=== PATIENT | male | born 1950 | race Two or more races ===

== ENCOUNTER 2024-09-28 10:09 | Inpatient (IN) | payer MEDICARE, SELFPAY ==
[2024-09-28] VITALS (8 sets, daily range): BP systolic 89–209; BP diastolic 48–114; PULSE 60–86; RESP 14–20; TEMP 36.3–37.3; O2SAT 94–99; BMI 28.1; BMI 27.5; BMI 27.8
--- NOTE | 2024-09-28 10:14 | EKG_ITS ---
[facility] Test Date: 2024-09-28 Pat Name: GLENIS GARNETT Department: Room: - Gender: Male Direct Care Specialist: : 1950 Requested By: ED Temporary Provider Order Number: [id number] Reading MD: ED Temporary Provider Measurements Intervals [place] Rate: 84 P: 60 NV: 176 QRS: 76 QRSD: 90 T: 12 QT: 336 QTc: 398 Interpretive Statements SINUS RHYTHM No previous ECG available for comparison /store/S0/[id number]/ecg/[id number].pdf
--- NOTE | 2024-09-28 10:29 | XR_ITS ---
Examination: PA lateral chest 2 views TECHNIQUE: Upright PA lateral chest 2 views Exam date and time: September 28, 2024 1039 hours Comparison January 05, 2024 INDICATIONS: Chest pain shortness of breath today FINDINGS: Normal heart size Median sternotomy wires Stable nodule versus nipple shadow right lower lung zone No interval pneumonia or pulmonary edema CABG IMPRESSION: No interval pneumonia or pulmonary edema
--- NOTE | 2024-09-28 10:38 | EDNOTE_ITS ---
ED Chest Pain RME/HPI General Chief Complaint: Chest Pain Stated Complaint: CHEST PAIN SINCE 929 TODAY,FALL 3 DAYS AGO Time Seen by Provider: 09/28/24 10:25 Arrival date/time: 09/28/24 10:09 RME / HPI RME / HPI narrative: This section includes all my notes and documentations, including HPI, PE, MDM, Procedure Notes, and PLAN. David Shine MD HPI: 73 year old male with history of PA, s/p CABG 2.5 years ago, hypertension, diabetes presents to the ED for complaint of chest pain beginning at 08:30 this morning, couple of hours ago. Pain described as sharp in sensation that is located most to the center of his chest, rating 8/10 in severity. Aggravated with palpating the area with no other known modifying factors. Reports he was at his usual state of health after waking a 07:00 am this morning. Denies fevers, chills, sweats, cough, shortness of breath, abdominal pain, n/v, or leg swelling. Patient additionally reports he had a GLF (mechanical fall) the day before yesterday and struck his face on the floor. No loss of consciousness. Denies headache or dizziness. No other complaints. ROS: Respiratory: negative except as documented in HPI. Gastrointestinal: negative except as documented in HPI. Genitourinary: negative except as documented in HPI. Musculoskeletal: negative except as documented in HPI. Skin: negative except as documented in HPI. Neurological: negative except as documented in HPI. Physical Exam: General: Alert and oriented. No acute distress when remaining still. Eyes: Conjunctivae and lids clear. EOMI. PERRL. ENT: No nasal congestion. Pharynx normal. Tympanic membrane normal bilaterally. Neck: Supple. No JVD. Heart: RRR. Lungs: No respiratory distress. Good air movement. No rhonchi, wheezing, rales. Chest: Reproducible chest pain with palpation of the sternum area. Abdomen: Soft and nontender. Legs: No clubbing, cyanosis, edema. Skin: Warm and dry. Neuro: Alert and oriented X 3. I reviewed all diagnostic test results. My interpretation of the EKG is sinus rhythm with nonspecific ST-T changes. My interpretation of the chest x-ray is no acute findings. Blood tests remarkable for Na 119. At this point, diagnoses include chest pain, hyponatremia, hypertensive urgency. Treatment here included normal saline, oral metoprolol 50 mg, oral clonidine 0.3 mg, ibuprofen 400 mg, and two Tylenol #3. No significant improvement noted subjectively and objectively. I discussed the case with our hospitalist. About the presentation and exam and diagnostics and treatments here. And need of further care in the hospital. Will accept the patient. David Shine MD Related Data Home Medications ?Medication ?Instructions ?Recorded ?Confirmed acetaminophen 650 mg 650 mg PO Q8H 05/27/21 05/27/21 tablet,extended release amlodipine 10 mg tablet 10 mg PO QDAY 05/27/21 05/29/21 carvedilol 25 mg tablet 25 mg PO BID 05/27/21 05/29/21 glipizide 5 mg tablet 5 mg PO QDAY 05/27/21 05/29/21 losartan 100 mg tablet 100 mg PO QDAY 05/27/21 05/29/21 pravastatin 20 mg tablet 20 mg PO PRN 05/27/21 05/29/21 sitagliptin phosphate 50 1 tab PO BIDWM 05/27/21 05/29/21 mg-metformin 1,000 mg tablet (Janumet) sildenafil 50 mg tablet (Viagra) 50 mg PO QDAY 05/29/21 05/29/21 Previous Rx's ?Medication ?Instructions ?Recorded ibuprofen 800 mg tablet 800 mg PO TID PRN pain #30 tabs 12/17/21 Allergies Allergy/AdvReac Type Severity Reaction Status Date / Time No Known Allergies Allergy Verified 09/28/24 10:14 Review of Systems Review of Systems Systems Reviewed: All systems reviewed, normal except as documented Past Medical History Past Medical History CARDIAC: Positive Cardiac Disorders, Hypercholesterolemia, Edema and Hypertension RESPIRATORY: Positive Bronchitis and Pneumonia GASTROINTESTINAL: Positive Gastrointestinal Disorders and Obesity MUSCULOSKELETAL: Positive Musculoskeletal Disorders, Arthritis, Rheumatoid Arthritis and Fractures ENDOCRINE: Positive Endocrine Disorders and Diabetes Mellitus Type 2 PSYCHO/SOCIAL: Positive Depression and Anxiety OTHER HISTORY: Positive Hospitalization, Falls and Blood Transfusions Family History FAMILY HISTORY: Positive Family Cardiac Disorders Surgical History SURGICAL: Positive Cardiac Catheterization, Angiogram and Abdominal Surgery Social History SMOKING STATUS: Never smoker Course Course Course Narrative: chest xray ordered to help determine etiology of chest pain. Quality Measures none Orders Category Date Time Status COVID-19 Screening Questionnaire NOW Care 09/28/24 12:38 Active Decision to Admit X1 Care 09/28/24 12:38 Completed EKG (ED ONLY) *Do not use* NOW Care 09/28/24 10:14 Completed Saline [Insert IV] NOW Care 09/28/24 12:11 Active EKG (ED Only) Stat Exams 09/28/24 10:14 Draft EKG (ED Only) Stat Exams 09/28/24 10:15 Ordered XR chest 1V portable Stat Exams 09/28/24 10:29 Completed BNP [B-Type Natriuretic Peptide] Stat Lab 09/28/24 10:57 Completed CBC Stat Lab 09/28/24 10:57 Completed CMP [Comprehensive Metabolic Panel] Stat Lab 09/28/24 10:57 Completed Magnesium Stat Lab 09/28/24 10:57 Completed Troponin I Stat Lab 09/28/24 10:57 Completed ACETAMINOPHEN w/COD 300-30 [Tylenol w/Cod #3] Med 09/28/24 10:28 Discontinued 2 tab PO X1 ONE Ibuprofen Tab [Motrin Tab] Med 09/28/24 10:28 Discontinued 400 mg PO X1 ONE Metoprolol Tartrate [Lopressor] Med 09/28/24 10:34 Discontinued 50 mg PO X1 ONE Sodium Chloride 0.9% 1000 ml [Ns] 1,000 ml Med 09/28/24 12:08 Active IV 125 mls/hr cloNIDine HCL [Catapres] Med 09/28/24 10:34 Discontinued 0.3 mg PO X1 ONE Vital Signs Vital signs: Vital Signs Temperature 99.1 F 09/28/24 10:24 Pulse Rate 79 09/28/24 10:24 Respiratory Rate 18 09/28/24 10:24 Blood Pressure 209/114 H 09/28/24 10:24 Pulse Oximetry (%) 99 09/28/24 10:24 Oxygen Delivery Method Room Air 09/28/24 10:24 Pulse ox is 99% on room air which is adequate. Chest Pain MDM Narrative MDM Narrative:: Antonia Dan am scribing for and in the presence of Dr. Shine. Patient data External records reviewed:: [facility] previous records (I reviewed ED visit on 03/10/2022) Clinical information provided by:: patient and spouse Social determinants that could affect healthcare access:: none Patient has the following chronic illnesses:: PA, s/p CABG 2.5 years ago, hypertension, diabetes How is presenting disease/condition affected by chronic disease/condition?: exacerbated by Evaluation data The following diagnostics were reviewed and interpreted by me:: lab results, radiology exam(s) and EKG tracing(s) (My interpretation of the EKG: NSR (84 bpm) with no ST-T changes. David Shine MD) Lab and/or radiology exams considered but not ordered:: None Interpretation Summary: Ordering Physician: David Shine MD Date of Service: 09/28/24 Procedure(s): XR chest 1V portable Accession Number(s): [id number] cc: David Shine MD; Rex Murillo MD~ Examination: PA lateral chest 2 views TECHNIQUE: Upright PA lateral chest 2 views Exam date and time: September 28, 2024 1039 hours Comparison January 05, 2024 INDICATIONS: Chest pain shortness of breath today FINDINGS: Normal heart size Median sternotomy wires Stable nodule versus nipple shadow right lower lung zone No interval pneumonia or pulmonary edema CABG IMPRESSION: No interval pneumonia or pulmonary edema Dictated By: Rex Murillo MD Signed By: <Electronically signed by Rex Murillo MD in OV> 09/28/24 1058 Medications / Prescriptions Medications or Prescriptions considered but not ordered:: None Medication administrations:: Medication Administration History Sodium Chloride (Ns) 1,000 mls @ 125 mls/hr IV .Q8H ONE Stop: 09/28/24 20:07 Last Admin: 09/28/24 13:35 Dose: 125 mls/hr Documented By: ASIF Discontinued Medications Acetaminophen/Codeine Phosphate (Acetaminophen W/Cod 300-30 Tablet) 2 tab PO X1 ONE Stop: 09/28/24 10:29 Last Admin: 09/28/24 11:34 Dose: 2 tab Documented By: ASIF Clonidine (Clonidine Hcl 0.1 Mg Tablet) 0.3 mg PO X1 ONE Stop: 09/28/24 10:35 Last Admin: 09/28/24 11:33 Dose: 0.3 mg Documented By: ASIF Ibuprofen (Ibuprofen Tab 400 Mg Tablet) 400 mg PO X1 ONE Stop: 09/28/24 10:29 Last Admin: 09/28/24 11:34 Dose: 400 mg Documented By: ASIF Metoprolol Tartrate (Metoprolol Tartrate 25 Mg Tablet) 50 mg PO X1 ONE Stop: 09/28/24 10:35 Last Admin: 09/28/24 11:33 Dose: 50 mg Documented By: ASIF See chart Consultations Consultation(s) initiated? (list below): Yes Consultation #1 (Physician, Specialty, Details): I spoke with hospitalist Dr. Arrington regarding admission. Discussed patients PMHx, HPI, ED course, exam findings, labs, and radiology results. The hospitalist agree to accept the patient for admission. Time: 12:40 Diagnosis Chest Pain Differential Diagnosis: pneumothorax, stable angina, unstable angina pectoris, atypical chest pain, st elevation myocardial infarction, costochondritis and chest pain Most likely diagnosis given after review of the tests above:: Acute hyponatremia Chest pain Hypertension Admission Indicated Admission indicated?: indicated Explain why admission is indicated or not indicated:: Chest pain and severe hyponatremia Admission Request Was there a request for admission?: Yes Admission Attestation Admission request attestation: Discussed case with Hospitalist service regarding admission. Discussed patients ED course, exam findings, labs, and radiology results. The Hospitalist [agrees,declines] to accept the patient for admission. Disposition Plan Disposition Plan: Admit Discharge Plan Plan Patient Disposition: Admit Acute Care w/in Hospital Prescriptions/Referrals Prescriptions/Med Rec: No Action ibuprofen 800 mg tablet 800 mg PO TID PRN (Reason: pain) Qty: 30 0RF amlodipine 10 mg Tablet 10 mg PO QDAY pravastatin 20 mg Tablet 20 mg PO PRN losartan 100 mg Tablet 100 mg PO QDAY glipizide 5 mg Tablet 5 mg PO QDAY Janumet 50-1,000 mg Tablet 1 tab PO BIDWM carvedilol 25 mg Tablet 25 mg PO BID acetaminophen [Tylenol Arthritis] 650 mg Tablet Extended Release 650 mg PO Q8H sildenafil [Viagra] 50 mg Tablet 50 mg PO QDAY Referrals: No Primary/Family,Physician [Primary Care Provider] - In 1 week Problem List Clinical Impression: Acute hyponatremia, Chest pain Patient/Caregiver Discharge Instructions Print Language: Kittitian Stand Alone Forms: Jaymie Award Info., Patient Portal Info Letter
[2024-09-28 11:06] LABS: Basophils # (Auto) 0.1 Thou/mm3 (0.0-0.2); Basophils % (Auto) 1 % (0-2.5); Eosinophils # (Auto) 0.1 Thou/mm3 (0.0-0.5); Eosinophils % (Auto) 1 % (0-10); Hematocrit 41.7 % (41.0-53.0); Immature Granulocytes % (Auto) 2 % (0-0); Immature Granulocytes Auto 0.23 Thou/mm3 (0.00-0.00); Lymphocytes # (Auto) 0.8 Thou/mm3 (1.0-4.8); Lymphocytes % (Auto) 7 % (10-50); Mean Corpuscular Volume 92 fL (80-100); Monocytes # (Auto) 1.3 Thou/mm3 (0.0-0.8); Monocytes % (Auto) 11 % (0-12); Neutrophils # (Auto) 9.1 Thou/mm3 (1.8-7.7); Neutrophils % (Auto) 79 % (37-80); Nucleated Red Blood Cell % 0 /100 WBC (0); Platelet Count 239 Thou/mm3 (140-440); RDW Standard Deviation 41.7 fL (35.1-43.9); Red Blood Count 4.54 Miln/mm3 (4.50-5.90); White Blood Count 11.5 Thou/mm3 (3.8-10.6)
[2024-09-28 11:22] LABS: B-Type Natriuretic Peptide 143 pg/mL (0-100)
[2024-09-28 11:28] LABS: Alanine Aminotransferase 16 U/L (10-49); Albumin, Serum 4.8 gm/dL (3.4-4.8); Albumin/Globulin Ratio 1.6 (1.2-2.2); Alkaline Phosphatase 98 U/L (46-116); Anion Gap 5 (7-16); Aspartate Amino Transferase 17 U/L (0-34); BUN/Creatinine Ratio 14 Ratio (12-20); Blood Urea Nitrogen 11 mg/dL (9-23); Carbon Dioxide 27.6 mMol/L (20.0-31.0); Chloride 86 mMol/L (98-107); Creatinine (Component) 0.8 mg/dL (0.6-1.3); Estimated Creatinine Clearance 88.5 mL/min (>60); Glucose 120 mg/dL (74-106); Magnesium 1.7 mg/dL (1.6-2.6); Osmolality,Calculated 240 (275-295); Potassium 5.1 mMol/L (3.4-5.1); Total Protein 7.8 gm/dL (5.7-8.2); Troponin I < 0.020 ng/mL (0.0-0.045); eGFR > 60 See Note
[2024-09-28] MEDS: METOPROLOL TARTRATE 25 MG TABLET 50 MG PO (11:33)
[2024-09-28] MEDS: cloNIDine HCL 0.1 MG TABLET 0.3 MG PO (11:33)
[2024-09-28] MEDS: IBUPROFEN TAB 400 MG TABLET PO (11:34)
[2024-09-28] MEDS: ACETAMINOPHEN w/COD 300-30 TABLET 2 TAB PO (11:34)
[2024-09-28 12:08] LABS: Sodium 119 mMol/L (136-145)
[2024-09-28] MEDS: SODIUM CHLORIDE 0.9% 1000 ML 1,000 ML 125 ML IV (13:35)
--- NOTE | 2024-09-28 15:29 | ESHP_ITS ---
Documentation for date of: 09/28/24 [facility] History of Present Illness History of present illness: This is a 62-year-old male with PMHx of CAD, s/p CABG 2.5 years ago, HTN, HLD, diabetes, and arthritis who presented to ED complaining of chest pain that started at 8:30 AM morning. Rates pain 8/10 in severity, dull but not stabbing in nature, located in the middle of the chest, nonradiating. Patient believes the pain occurred after falling last night for which she tripped over an object at night. Denies preceding symptoms prior to fall, lightheadedness, dizziness, head trauma, headache, generalized weakness, fever, chills, fatigue, LOC, neurological deficits, cardiogenic chest pain, shortness of breath or cough, abnormal bleed, abdominal pain, N/V/D/C, or urinary symptoms. ED COURSE: * Afebrile, BP 209/114 improved after CLONIDINE, HR 79, satting 99% on room air * WBC 11.5, otherwise CBC benign * Sodium 119, potassium 5.1, calculated osmolality 240, BNP 143, troponins negative * CXR without pneumonia or pulmonary edema, EKG sinus rhythm without acute ST changes Patient admitted for symptomatic severe hyponatremia and started on fluids. Nephrology consulted. PMHx: As above PSHx: None Meds: METFORMIN 1000 daily, METOPROLOL titrate 25 mg daily, LOSARTAN 100 mg daily, FARXIGA 5 mg daily, KERENDIA 20 mg daily, ATORVASTATIN 40 mg HS, ASPIRIN 80 mg HS, TAMSULOSIN 0.4 mg HS, OMEPRAZOLE 40 mg daily, SUCRALFATE 1 mg daily in AM. SH: Denies tobacco, alcohol or drug use Exam Vital Signs Temp Pulse Resp BP Pulse Ox O2 Del Method 98.3 F 62 20 89/48 L 96 Room Air 09/28/24 13:31 09/28/24 13:31 09/28/24 13:31 09/28/24 13:31 09/28/24 13:31 09/28/24 13:31 Narrative Exam GENERAL: Normal appearing elderly male, NAD, on room air HEENT: NCAT.?PEMA. Oral mucosa is moist. Patent Nares NECK: Supple, nontender, no thyromegaly, no meningismus, no JVD, no step offs CHEST: Symmetrical, atraumatic, and with equal expansion. Tenderness to palpation over sternum, no obvious bony deformities. CARDIOVASCULAR: RRR, no m/g/r LUNGS: CTAB, no w/r/r. Symmetrical chest rise. No intercostal subcostal retraction. ABDOMEN: Soft, flat, nontender. No guarding/rebound tenderness/masses. +BS EXTREMITIES: Nontender.? No edema/cyanosis.?Moves all 4 extremities well, with full ROM and good CSM. SKIN: Warm and dry, no jaundice/rashes. 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 Several superficial lacerations over left forehead, nontender, no active bleed. MSK: No lumbar or midline, no CVA, no paraspinal muscle spasm or tenderness. NEURO: YOU x4, CN II-XII grossly intact.?No focal neurologic deficits. PSYCHIATRIC: Normal mood and affect, cooperative, no SI or HI or hallucinations. Results: Labs 09/29/24 03:24 09/29/24 08:10 Labs: Short CBC 09/28/24 Range/Units 10:57 WBC 11.5 H (3.8-10.6) Thou/mm3 Hgb 15.0 (13.5-16.0) g/dL Hct 41.7 (41.0-53.0) % Plt Count 239 (140-440) Thou/mm3 BMP 09/28/24 10:57 Sodium 119 L* Potassium 5.1 Chloride 86 L Carbon Dioxide 27.6 BUN 11 Creatinine 0.8 Glucose 120 H Calcium 10.0 Cardiac Enzymes 09/28/24 Range/Units 10:57 Troponin I < 0.020 (0.0-0.045) ng/mL Liver Function 09/28/24 Range/Units 10:57 Total Bilirubin 1.0 (0.3-1.2) mg/dL AST 17 (0-34) U/L ALT 16 (10-49) U/L Alkaline Phosphatase 98 (46-116) U/L Albumin 4.8 (3.4-4.8) gm/dL Quality Measures Quality Measures none Advance care planning discussed with:: patient Medications Home Medications and Allergies Home Medications ?Medication ?Instructions ?Recorded ?Confirmed ?Type acetaminophen 650 mg 650 mg PO Q8H 05/27/21 05/27/21 History tablet,extended release amlodipine 10 mg tablet 10 mg PO QDAY 05/27/21 05/29/21 History carvedilol 25 mg tablet 25 mg PO BID 05/27/21 05/29/21 History glipizide 5 mg tablet 5 mg PO QDAY 05/27/21 05/29/21 History losartan 100 mg tablet 100 mg PO QDAY 05/27/21 09/29/24 History pravastatin 20 mg tablet 20 mg PO PRN 05/27/21 05/29/21 History sitagliptin phosphate 50 1 tab PO BIDWM 05/27/21 05/29/21 History mg-metformin 1,000 mg tablet (Janumet) sildenafil 50 mg tablet (Viagra) 50 mg PO QDAY 05/29/21 05/29/21 History aspirin 81 mg capsule 81 mg PO QDAY 09/29/24 09/29/24 History atorvastatin 40 mg tablet 40 mg PO 1XD 09/29/24 09/29/24 History clopidogrel 75 mg tablet 75 mg PO QPM 09/29/24 09/29/24 History dapagliflozin propanediol 5 mg 5 mg PO QAM 09/29/24 09/29/24 History tablet (Farxiga) dapagliflozin propanediol 5 mg mg 09/29/24 History tablet (Farxiga) finerenone 20 mg tablet (Kerendia) 20 mg PO QAM 09/29/24 09/29/24 History metoprolol tartrate 25 mg tablet 25 mg PO DION 09/29/24 09/29/24 History omeprazole 40 mg capsule,delayed 40 mg PO QAM 09/29/24 09/29/24 History release tamsulosin 0.4 mg capsule 0.4 mg PO QPM 09/29/24 09/29/24 History Allergies Allergy/AdvReac Type Severity Reaction Status Date / Time No Known Allergies Allergy Verified 09/28/24 10:14 Visit Medications Sodium Chloride (Ns) 1,000 mls @ 125 mls/hr IV .Q8H ONE Stop: 09/28/24 20:07 Last Admin: 09/28/24 13:35 Dose: 125 mls/hr Discontinued Medications Acetaminophen/Codeine Phosphate (Acetaminophen W/Cod 300-30 Tablet) 2 tab PO X1 ONE Stop: 09/28/24 10:29 Last Admin: 09/28/24 11:34 Dose: 2 tab Clonidine (Clonidine Hcl 0.1 Mg Tablet) 0.3 mg PO X1 ONE Stop: 09/28/24 10:35 Last Admin: 09/28/24 11:33 Dose: 0.3 mg Ibuprofen (Ibuprofen Tab 400 Mg Tablet) 400 mg PO X1 ONE Stop: 09/28/24 10:29 Last Admin: 09/28/24 11:34 Dose: 400 mg Metoprolol Tartrate (Metoprolol Tartrate 25 Mg Tablet) 50 mg PO X1 ONE Stop: 09/28/24 10:35 Last Admin: 09/28/24 11:33 Dose: 50 mg Assessment & Plan Plan This is a 73 year-old male with PMHx of CAD, s/p CABG 2.5 years ago, HTN, HLD, diabetes, and arthritis admitted for asymptomatic severe hyponatremia. Patient started on fluids, sodium checks, pending nephrology recommendation. Baseline Echocardiogram ordered. Appreciate nephrology's recommendations. # Severe hypoosmotic hyponatremia, asymptomatic DDx: Acute versus chronic: SIADH 2/2 fall, dehydration, hypothyroidism Presented with sodium 119, calculated osmolarity 240 No history of DIURETIC use, GI loss, heart failure, liver failure, alcoholism, or kidney disease Last sodium on file from 2022 ? Started IV fluids at 75 cc/HR, pending baseline echocardiogram ? Sodium checks Q3H ? Sodium correction rate 6-8 mEq in 24 hours ? Pending urine potassium, sodium, nitrogen, chloride, creatinine ? Pending TSH ? Follow-up nephrology recommendations # Mechanical fall # Chest pain 2/2 fall May be a cause of hyponatremia (SIADH) rather than a result of hyponatremia Admits to mechanical fall on Friday night after tripping over a misplaced object on the floor Exam showed left forehead facial laceration, nontender, no active bleed, no skull deformities, otherwise no focal neurological deficits, cranial nerve exam grossly intact. Reproducible chest tenderness over the mid sternum, without deformities, CXR showed no fracture Subjective paresthesia of distal left extremity, normal physical exam ? Monitor for worsening symptoms, consider CT head ? Follow-up B12 level ? ANALGESICS ordered # CAD, s/p CABG 2.5 years ago. # Hypertensive urgency (resolved) # Hx of HTN, HLD Admission BP 209/114 without signs of EOD, improved with CLONIDINE, patient skipped home ANTIHYPERTENSIVE dose today. Denies cardiogenic chest pain, normal troponins, normal EKG Pending lipid panel, TSH Target LDL should be less than 55 Patient should be on high intensity statin, however currently on 40 mg ? Resumed ASPIRIN 81 mg daily ? Resumed PLAVIX 75 mg HS ? Resumed LOSARTAN 100 mg daily ? Resumed ATORVASTATIN 40 mg HS ? Resume METOPROLOL 50 mg daily # T2DM Fingerstick GLUCOSE 119, last A1c 5.8 from 03/2023 ? Follow-up A1c ? INSULIN sliding scale # Arthritis ? TYLENOL as above Health maintenance Diet: Cardiac GI prophylaxis: PROTONIX DVT prophylaxis: HEPARIN subcu, SCDs Antibiotics: Not indicated CODE STATUS: DNR Disposition: Correcting hyponatremia, pending nephrology recommendations Patient case was discussed with attending, Dorian Arrington MD and senior residents Dr. Phillip and Dr. Cornelius. Almita Hoffman, DO PGYI L Mr Wall is a 73 year old with PMHx of CAD, s/p CABG 2.5 years ago, HTN, HLD, diabetes, and arthritis, who is admitted for severe hyponatremia Na 119. Recent history of GLMF, will supplement vitamins. Nephrology is consulted for hypotonic hyponatremia, severe. Will start patient on NS and monitor closely, goal correction 4-6 in 24 hours. Patient examined and case discussed with the team including attending physician. Note reviewed, I agree with the care plan as documented. - Donnie Cornelius MD, PGY 2 Attending Provider Attestation/Addendum I reviewed labs, imaging, EKG, home medications and prior available records. Face to face evaluation was performed by me. I have personally examined the patient and discussed assessment and plan with the IM team. I reviewed the resident note and agree with the plan with exceptions as below. 73-year-old male with history of CAD status post CABG who presented with a chief complaint of chest pain in the setting of ground-level fall. He was found to have severe hyponatremia. Ground-level fall: Likely in setting of generalized weakness which could be from hyponatremia. Management as below. Management of pain as needed. Ordered PT evaluation. Hyponatremia: Severe. Etiology is unclear but could be contributed to decreased oral intake. Medications reviewed. Patient appears to be dehydrated. Started the patient on normal saline. Monitor BMP. Avoid rapid correction. Send urine studies. Chest pain at rest: Appears to be musculoskeletal in the setting of ground-level fall. Troponin is negative. Management as above. Generalized weakness: Likely in the setting of dehydration versus hyponatremia. Management as above. CAD status post CABG: Resumed home aspirin, Plavix and atorvastatin.
[2024-09-28 16:49] LABS: Thyroid Stimulating Hormone 2.14 uIU/mL (0.55-4.78)
--- NOTE | 2024-09-28 16:50 | ECHO_ITS ---
Transthoracic Echo Report Ht (in): 68 Wt (lb): 181 Exam Location: Portable Status: Inpatient Composite Laminator: Lyla Sanchez Indications: Procedure Performed: BP: 105 / 75 HR: 72 Rhythm: Sinus Technical Quality: Technically difficult study MEASUREMENTS (Male / Female) Normal Values 2D ECHO LV Diastolic Diameter PLAX 4.0 cm 4.2 - 5.9 / 3.9 - 5.3 cm LV Systolic Diameter PLAX 2.9 cm IVS Diastolic Thickness 1.1 cm 0.6 - 1.0 / 0.6 - 0.9 cm LVPW Diastolic Thickness 1.1 cm 0.6 - 1.0 / 0.6 - 0.9 cm LV Relative Wall Thickness 0.5 LVOT Diameter 1.8 cm LA Volume Index 38.3 cm?/m? 16 - 28 cm?/m? Ascending Aorta Diameter 3.2 cm M-MODE Aortic Root Diameter MM 2.7 cm LA Systolic Diameter MM 4.4 cm LA Ao Ratio MM 1.6 AV Cusp Separation MM 2.3 cm DOPPLER AV Peak Velocity 121.0 cm/s AV Peak Gradient 5.9 mmHg AV Mean Gradient 3.0 mmHg AV Velocity Time Integral 23.7 cm LVOT Peak Velocity 100.0 cm/s LVOT Peak Gradient 4.0 mmHg LVOT Velocity Time Integral 18.1 cm LVOT Cardiac Index 1656.7 cm?/min?m? AV Area Cont Eq vti 1.9 cm? AV Area Cont Eq pk 2.1 cm? MV Peak Velocity 105.0 cm/s MV Peak Gradient 4.4 mmHg MV Mean Velocity 58.5 cm/s MV Mean Gradient 2.0 mmHg MV Area PHT 3.5 cm? Mitral E Point Velocity 63.1 cm/s Mitral A Point Velocity 86.3 cm/s Mitral E to A Ratio 0.7 LV E' Lateral Velocity 7.8 cm/s Mitral E to LV E' Lateral Ratio 8.1 LV E' Septal Velocity 5.8 cm/s Mitral E to LV E' Septal Ratio 10.9 FINDINGS Left Ventricle Normal left ventricular size, systolic function with no obvious regional wall motion abnormalities. Mild LVH. The ejection fraction is visually estimated at 50-55%. Right Ventricle The right ventricle is normal in size and systolic function. Left Atrium The left atrium is mildly dilated. Right Atrium The right atrium is normal by two-dimensional imaging, color flow and Doppler imaging with no struct ural abnormalities, no thrombus formation present. Atrial Septum The interatrial septum appears normal with no evidence of a shunt. Aorta The aorta is normal by two-dimensional, color flow and Doppler interrogation. Mitral Valve The mitral valve is mildly MAC. There is trace mitral valve regurgitation. Aortic Valve The aortic valve is trileaflet. Mild sclerosis without stenosis. There is no significant aortic valv e regurgitation. Tricuspid Valve The tricuspid valve is normal by two-dimensional, color flow and Doppler interrogation. There is tra ce tricuspid valve regurgitation. Pulmonic Valve The pulmonic valve is normal by two-dimensional, color flow and Doppler interrogation. There is no significant pulmonic valve regurgitation. Vessels The pulmonary artery appears normal. The inferior vena cava pulmonary and hepatic veins appear wanda l. Pericardium The pericardium is normal by two-dimensional imaging. There is no significant pericardial effusion. CONCLUSIONS Indication: Chest pain/HTN Suboptimal images. Normal LV size and function. Mild LVH. Grade I diastolic dysfunction. Estimated EF 50-55% Normal RV size and function. LA mildly dilated. Mild MAC. Trace MR, TR. Mild AV sclerosis without stenosis. Pedrito Ricardo (Electronically Signed) Final Date: 30 September 2024 05:55
[2024-09-28 16:52] LABS: Sodium 119 mMol/L (136-145)
--- NOTE | 2024-09-28 17:20 | PD.RESCONSUL ---
HPI Data of Consult Patient: known to practice within the last 3 years Consult date: 09/28/24 Requesting Physician: Dorian Arrington MD Admitting Provider: Dorian Arrington MD Attending Provider: Dorian Arrington MD Primary Care Provider: Physician No Primary/Family Consult Narrative Reason for consult: Hyponatremia History of present illness: Mr. Wall is a 39-year-old yoruba-speaking patient with past medical history of diabetes, hypertension, hyperlipidemia, coronary artery disease status post CABG 2020 and BPH who presented to [facility] with a chief complaint of chest pain, patient reported that chest pain started earlier this morning, describes chest pain as dull ache /10, reported feeling of heaviness in the chest radiating to left arm. Patient denies any nausea,vomiting or diaphoresis associated with pain, he reported that he had similar complaint in 2020 when he was admitted for chest pain and was eventually found to have triple-vessel disease for which he was transferred to [facility]. Patient reports following up with Dr. Rai outpatient in the past, unable to follow-up with him due to insurance difficulties, reports regular follow-up with [facility]. Patient was seen at nephrology practice about a year ago for the concern of microalbuminuria. Patient otherwise has no current complaints, denies any shortness of breath. Patient denies any recent increase in water intake, denies any alcohol intake, denies any history of hyponatremia. He does complain of dizziness which started recently, does endorse history of multiple falls, most recent fall described as tripping over a toy box and hitting his head, bruise noted on forehead on the left side. Patient's also reports that patient has decreased p.o. intake and recently has lost weight. Current medications patient currently on Janumet, metoprolol tartrate, losartan, Farxiga, Kerendia, atorvastatin, clopidogrel, aspirin, tamsulosin, omeprazole, sucralfate. ED Course: ED Vitals: On presentation BP 209/114, P79, RR 18, temp 99.1, O2 sat 99 on room air ED Labs: ED labs significant for WBC 11.5, neutrophilia, sodium 119, chloride 86, glucose 120, osmolality 240, BNP 143, troponins negative, TSH 2.14. Repeat sodium 119 ED Imaging: EKG in ED shows no ST elevation, chest x-ray significant for no pneumonia/pulmonary edema ED Treatment:Patient was given clonidine 0.3 mg x 1, metoprolol tartrate 50 mg x 1, ibuprofen 400 mg, acetaminophen/codeine phosphate 2 tabs and was started on NS 125 cc/h Nephrology consulted for management of hypoosmolar hypochloremic hyponatremia. cc:: cc: Dorian Arrington MD Review of Systems Review of Systems Narrative Review of Systems: ROS: -CONSTITUTIONAL: Denies weight loss, fever and chills. Positive for dizziness decreased p.o. intake and recent weight loss. -HEENT: Denies changes in vision and hearing. -RESPIRATORY: Denies SOB and cough. -CV: Denies palpitations. Positive for chest pain. -GI: Denies abdominal pain, nausea, vomiting,constipation and diarrhea. -: Denies dysuria and urinary frequency. -MSK: Denies myalgia and joint pain. -SKIN: Denies rash and pruritus. -NEUROLOGICAL: Denies headache and syncope. -PSYCHIATRIC: Denies recent changes in mood. Denies anxiety and depression. Past Medical History Past Medical History NEUROLOGIC: Negative Neurological Disorders, Cerebrovascular Accident, Transient Ischemic Attacks (TIA), Dementia, Alzheimer's Disease, Parkinson's Disease, Brain Tumor, Meningitis, Seizures, Epilepsy, Multiple Sclerosis, Cerebral Palsy, Amyotrophic Lateral Sclerosis (ALS/Jacqueline Gehrig's), Guillain-[place] Syndrome, Spina Bifida, Paralysis, Peripheral Neuropathy, Nichole's Palsy, Subdural Hematoma, Migraine, Head Trauma, Spinal Cord Injury or Traumatic Brain Injury CARDIAC: Positive Cardiac Disorders, Hypercholesterolemia, Edema and Hypertension; Negative Myocardial Infarction, Cardiac Arrhythmia, Atrial Fibrillation, Angina, Heart Murmur, Coronary Artery Disease, Atherosclerotic Heart Disease, Peripheral Vascular Disease, Aneurysm, Congestive Heart Failure, Congenital Heart Disease, Valvular Heart Disease, Rheumatic Fever, Cardiomyopathy, Pericarditis, Cellulitis, Deep Vein Thrombosis, Hypotension or Varicose Veins RESPIRATORY: Positive Bronchitis and Pneumonia; Negative Chronic Obstructive Pulmonary Disease (COPD), Asthma, Emphysema, Pulmonary Fibrosis, Cystic Fibrosis, Tuberculosis, Pulmonary Embolism, Pulmonary Edema or Sleep Apnea GASTROINTESTINAL: Positive Gastrointestinal Disorders and Obesity; Negative Hepatitis, Cirrhosis, Pancreatitis, Celiac Disease, Gall Bladder Disease, Gastrointestinal Bleed, Esophageal Varices, Rizo's Esophagus, Colitis, Ulcerative Colitis, Diverticulitis, Diverticulosis, Ulcer, Colorectal Cancer, Irritable Bowel, Crohn's Disease, Obstructive Bowel, Hiatal Hernia, Hemorrhoids or Gastroesophageal Reflux Disease GENITOURINARY: Negative Genitourinary Disorders, Renal Disease, Kidney Stones, Polycystic Kidney Disease, Neurogenic Bladder, Inguinal Hernia, Dialysis, Prostate Cancer or Benign Prostatic Hyperplasia REPRODUCTIVE: Negative Breast Cancer or Testicular Cancer MUSCULOSKELETAL: Positive Musculoskeletal Disorders, Arthritis, Rheumatoid Arthritis and Fractures; Negative Muscular Dystrophy, Myasthenia Gravis, Marfan's Syndrome, Bone Cancer, Osteoporosis, Degenerative Disk Disease, Gout, Scoliosis, Carpal Tunnel Syndrome, Fibromyalgia, Degenerative Joint Disease, Osteomyelitis or Poliovirus ENT: Negative Cataracts, Glaucoma, Blind, Retinal Detachment, Macular Degeneration, Ear Infection, Deafness, Head Trauma or Eye Prosthesis ENDOCRINE: Positive Endocrine Disorders and Diabetes Mellitus Type 2; Negative Diabetes Mellitus Type 1, Hypoglycemia, Jocelyn's Syndrome, Ervin's Disease, Hyperthyroidism, Hypothyroidism, Parathyroid Disease, Pituitary Disease, Systemic Lupus Erythematosus, Syndrome of Inappropriate Antidiuretic Hormone (SIADH), Adrenal Disease or Graves' Disease HEMATOLOGIC: Negative Blood Disorders, Anemia, Leukemia, Hemophilia, Thalassemia, Sickle Cell Disease or Clotting Problems PSYCHO/SOCIAL: Positive Depression and Anxiety; Negative Psychiatric Problems, Schizophrenia, Recreational Drug Use, Bipolar Disorder, Behavior Problems, Self-Mutilation, Attention Deficit Disorder, Attention Deficit Hyperactivity Disorder, Depression, Post Traumatic Stress Disorder or Eating Disorder OTHER HISTORY: Positive Hospitalization, Falls, Blood Transfusions and Measles; Negative Autoimmune Disease, Down Syndrome, Autism, Developmental Delay, Shingles, Blood Transfusion Reaction, Anesthesia Reactions, Organ Transplant, Chemotherapy, Radiation Therapy, Hyperbaric Therapy, MRSA, VRSA, Vancomycin-Resistant Enterococci, Human Immunodeficiency Virus (HIV), Chicken Pox, Mumps, Rubella ([place] Measles), Pertussis, Clostridium Difficile, Cancer, Breast Cancer, Colorectal Cancer, Lung Cancer, Prostate Cancer or Testicular Cancer Family History FAMILY HISTORY: Positive Family Cardiac Disorders; Negative Family Psychiatric Problems, Family Respiratory Disorders, Family Gastrointestinal Problems, Family Cancer, Family Surgery or Family Anesthesia Reaction Surgical History SURGICAL: Positive Cardiac Catheterization, Angiogram and Abdominal Surgery; Negative Cardiac Surgery, Open Heart Surgery, Coronary Artery Bypass Graft, Valve Replacement, Vascular Surgery, Coronary Stent, Pacemaker, Auto Implanted Cardiovert Defib, Carotid Endarterectomy, Endocrine Surgery, Thyroidectomy, Ear Surgery, Tympanostomy Tube, Eye Surgery, Nose Surgery, Oral Surgery, Tonsillectomy, Adenoidectomy, Cochlear Implant, Corneal Transplant, Throat Surgery, Tracheostomy, Gastric Bypass Surgery, Gastrostomy, Bowel Surgery, Nephrectomy, Transurethral Resection, Joint Replacement, Amputation, Open Reduction Internal Fixation, Arthroscopy, Neurologic Surgery, Brain Shunt, Vasectomy or Organ Transplant Social History SMOKING STATUS: Never smoker Past Medical History Comments PMH COMMENT: PMH: Positive for diabetes, hypertension, hyperlipidemia, coronary artery disease status post CABG 2020 and BPH PSHx: Coronary artery bypass graft, 2020 Allergies: No known allergies Social history: -Smoking: Denies -Alcohol Use: Admits to occasional alcohol use -Illicit Drug Use: Denies -Martial Status: , at bedside Family History: Unable to provide any pertinent family history Exam Vital Signs Temp Pulse Resp BP Pulse Ox O2 Del Method 98.1 F 62 15 130/74 94 L Room Air 09/28/24 16:29 09/28/24 16:29 09/28/24 16:29 09/28/24 16:29 09/28/24 16:29 09/28/24 16:29 Narrative Exam Physical Exam General: Awake and in no acute distress. Conversational and non-toxic appearing. HEENT: Normocephalic, atraumatic, mucous membranes moist. Bruise noted on forehead, left side Heart: Regular rate and rhythm, no murmurs. Lungs: Clear to auscultation with no wheezing or crackles. Abdomen: Soft, obese, nondistended, nontender, positive bowel sounds. ?No guarding or rebound tenderness. Neurologic: Alert and oriented x3, no gross neurological deficit, and patient able to move all 4 extremities. Extremities: No edema. Bilateral venous stasis/dermatitis noted bilateral legs. Skin: No rash or ecchymoses. Results Labs 09/29/24 03:24 09/29/24 16:56 Labs: Short CBC 09/28/24 Range/Units 10:57 WBC 11.5 H (3.8-10.6) Thou/mm3 Hgb 15.0 (13.5-16.0) g/dL Hct 41.7 (41.0-53.0) % Plt Count 239 (140-440) Thou/mm3 BMP 09/28/24 09/28/24 10:57 16:05 Sodium 119 L* 119 L* Potassium 5.1 Chloride 86 L Carbon Dioxide 27.6 BUN 11 Creatinine 0.8 Glucose 120 H Calcium 10.0 Cardiac Enzymes 09/28/24 Range/Units 10:57 Troponin I < 0.020 (0.0-0.045) ng/mL Liver Function 09/28/24 Range/Units 10:57 Total Bilirubin 1.0 (0.3-1.2) mg/dL AST 17 (0-34) U/L ALT 16 (10-49) U/L Alkaline Phosphatase 98 (46-116) U/L Albumin 4.8 (3.4-4.8) gm/dL Quality Measures Quality Measures none Advance care planning discussed with:: patient and spouse Medications Home Medications and Allergies Home Medications ?Medication ?Instructions ?Recorded ?Confirmed ?Type acetaminophen 650 mg 650 mg PO Q8H 05/27/21 05/27/21 History tablet,extended release amlodipine 10 mg tablet 10 mg PO QDAY 05/27/21 05/29/21 History carvedilol 25 mg tablet 25 mg PO BID 05/27/21 05/29/21 History glipizide 5 mg tablet 5 mg PO QDAY 05/27/21 05/29/21 History losartan 100 mg tablet 100 mg PO QDAY 05/27/21 09/29/24 History pravastatin 20 mg tablet 20 mg PO PRN 05/27/21 05/29/21 History sitagliptin phosphate 50 1 tab PO BIDWM 05/27/21 05/29/21 History mg-metformin 1,000 mg tablet (Janumet) sildenafil 50 mg tablet (Viagra) 50 mg PO QDAY 05/29/21 05/29/21 History aspirin 81 mg capsule 81 mg PO QDAY 09/29/24 09/29/24 History atorvastatin 40 mg tablet 40 mg PO 1XD 09/29/24 09/29/24 History clopidogrel 75 mg tablet 75 mg PO QPM 09/29/24 09/29/24 History dapagliflozin propanediol 5 mg 5 mg PO QAM 09/29/24 09/29/24 History tablet (Farxiga) dapagliflozin propanediol 5 mg mg 09/29/24 History tablet (Farxiga) finerenone 20 mg tablet (Kerendia) 20 mg PO QAM 09/29/24 09/29/24 History metoprolol tartrate 25 mg tablet 25 mg PO DION 09/29/24 09/29/24 History omeprazole 40 mg capsule,delayed 40 mg PO QAM 09/29/24 09/29/24 History release tamsulosin 0.4 mg capsule 0.4 mg PO QPM 09/29/24 09/29/24 History Allergies Allergy/AdvReac Type Severity Reaction Status Date / Time No Known Allergies Allergy Verified 09/28/24 10:14 Visit Medications Acetaminophen (Acetaminophen 325 Mg Tablet) 650 mg PO Q6H PRN PRN Reason: Fever >100.4 Stop: 10/28/24 15:34 Acetaminophen (Acetaminophen 325 Mg Tablet) 650 mg PO Q6H PRN PRN Reason: PAIN SCALE 1-3 (mild Stop: 10/28/24 15:34 Aspirin (Aspirin Ec 81 Mg Tabec) 81 mg PO QDAY [facility] Stop: 10/28/24 15:59 Atorvastatin Calcium (Atorvastatin Calcium 20 Mg Tablet) 40 mg PO HS [facility] Stop: 10/28/24 20:59 Clopidogrel Bisulfate (Clopidogrel Bisulfate 75 Mg Tablet) 75 mg PO HS [facility] Stop: 10/28/24 20:59 Dextrose (Dextrose 50%-Water Inj 50 Ml Syringe) 25 ml IV Q15MIN PRN PRN Reason: BG 50-70 responsive npo pt Stop: 10/28/24 15:46 Dextrose (Dextrose 50%-Water Inj 50 Ml Syringe) 50 ml IV Q15MIN PRN PRN Reason: BG <50 OR BG <70 & pt unresponsive Stop: 10/28/24 15:46 Glucagon (Glucagon Inj 1 Mg Vial) 1 mg IM Q15MIN PRN PRN Reason: BG <70, and no IV access Sodium Chloride (Ns) 1,000 mls @ 75 mls/hr IV .[id number] ONE Stop: 09/29/24 01:27 Insulin Human Lispro (Insulin Lispro (Admelog) 1 Unit/0.01 Ml Unit) 0 unit [facility]; Protocol Stop: 10/28/24 16:59 Losartan Potassium (Losartan Potassium 25 Mg Tablet) 100 mg PO QDAY [facility] Stop: 10/29/24 08:59 Ondansetron HCl (Ondansetron Inj 2 Mg/Ml Inj 2 Ml) 4 mg IV Q6H PRN; Protocol PRN Reason: NAUSEA OR VOMITING Stop: 10/28/24 15:34 Oxycodone/Acetaminophen (Oxycodone/Apap 5/325 Tablet) 1 tab PO Q6H PRN PRN Reason: PAIN SCALE 4-6 (Moderate Stop: 10/03/24 15:34 Pantoprazole Sodium (Pantoprazole 20 Mg Tablet) 20 mg PO QDAY [facility] Stop: 10/28/24 15:59 Sucralfate (Sucralfate 1 Gm Tablet) 1 gm PO ACBR [facility] Stop: 10/29/24 05:59 Tamsulosin HCl (Tamsulosin Hcl 0.4 Mg Capsule) 0.4 mg PO QDAY [facility] Stop: 10/29/24 08:59 Discontinued Medications Acetaminophen/Codeine Phosphate (Acetaminophen W/Cod 300-30 Tablet) 2 tab PO X1 ONE Stop: 09/28/24 10:29 Last Admin: 09/28/24 11:34 Dose: 2 tab Clonidine (Clonidine Hcl 0.1 Mg Tablet) 0.3 mg PO X1 ONE Stop: 09/28/24 10:35 Last Admin: 09/28/24 11:33 Dose: 0.3 mg Sodium Chloride (Ns) 1,000 mls @ 125 mls/hr IV .Q8H ONE Stop: 09/28/24 20:07 Last Admin: 09/28/24 13:35 Dose: 125 mls/hr Ibuprofen (Ibuprofen Tab 400 Mg Tablet) 400 mg PO X1 ONE Stop: 09/28/24 10:29 Last Admin: 09/28/24 11:34 Dose: 400 mg Metoprolol Tartrate (Metoprolol Tartrate 25 Mg Tablet) 50 mg PO X1 ONE Stop: 09/28/24 10:35 Last Admin: 09/28/24 11:33 Dose: 50 mg Assessment & Plan Plan Summary: is a 39-year-old yoruba-speaking patient with past medical history of diabetes, hypertension, hyperlipidemia, coronary artery disease status post CABG 2020 and BPH who presented to [facility] with a chief complaint of chest pain. Nephrology consulted for management of hypoosmolar hypochloremic hyponatremia. # Hypoosmolar hypochloremic hyponatremia -Denies any history of hyponatremia, not on any diuretics, unable to provide reliable detail of current p.o. medication, denies any neurological symptoms, no neurological deficits seen on exam - at bedside does report decreased p.o. intake, reports recent weight loss. Does endorse increased dizziness causing multiple falls recently. -Patient does not look fluid overloaded at bedside, does report decreased p.o. intake, considering hypovolemic hyponatremia due to decreased p.o. intake. -Patient's sodium 119 on presentation, repeat sodium 119. Patient was started on IV NS in ED 125 cc/h. Plan: -Continue IV normal saline 75 cc/h -Continue sodium checks every 4 hours -Follow urine electrolytes -Follow urine analysis -Pending med reconciliation, will confirm home meds in a.m. -Correct sodium with goal of 4 to 6 mEq in 24 hours -Avoid nephrotoxic medication -Renally dose medication -Fall precautions # Cardiac chest pain # Coronary artery disease status post CABG 2020 Patient did present with chest pain, reported dull ache radiating to left arm, troponin negative in ED, EKG negative for any ST elevation Does endorse chest pain currently Management per primary team # Diabetes mellitus # Hypertension # Hyperlipidemia # BPH Management as per primary team Case discussed with Attending physician Dr. Rosales. Paula Ugarte PGY1 Attending Provider Attestation/Addendum Patient seen and examined with resident physician Dr. Ugarte. Note reviewed, agree with findings and recommendations. Patient currently seen in the emergency department. at bedside and she is a calender wind up tender. Patient well-known to me from my CKD clinic for proteinuria in the setting of her diabetes. He is currently taking losartan, Kerendia, Farxiga for renal protection. Admitted with chest pain-rule out unstable angina. Incidentally noted to have a sodium of 119. Per patient has decreased p.o. intake in the last few days associated weight loss. Suspect hypovolemic hyponatremia. Agree with continuing normal saline with close monitoring of serum sodium. No more than 6 mEq rise in the next 24 hours. Patient clinically seems to be stable with no neurological problems. No need for 3% hypertonic saline. Will follow closely. Thank you Dr. Arrington for allowing me to participate in the care of Mr. Wall.
[2024-09-28 17:25] LABS: Collection Type, Urine Clean Catch; Squamous Epithelial Cell,Urine 0 /hpf (0-5)
[2024-09-28 18:01] LABS: Sodium,Urine Random 18.2 mMol/L (20.0-110.0)
[2024-09-28] MEDS: ASPIRIN EC 81 MG TABEC PO (18:01)
[2024-09-28] MEDS: SODIUM CHLORIDE 0.9% 1000 ML 1,000 ML 75 ML IV (18:02)
[2024-09-28 18:11] LABS: Bilirubin,Urine Negative (Negative); Blood,Urine Negative (Negative); Clarity,Urine Clear (Clear/Hazy); Color,Urine Lt-Yellow (Lt Yel-Yel); Glucose, Urine 4+ (Negative); Ketones,Urine Negative (Negative); Leukocyte Esterase,Urine Negative (Negative); Nitrite,Urine Negative (Negative); Protein,Urine 1+ (Neg - Trace); RBC,Urine 4 /hpf (0-3); Specific Gravity,Urine 1.014 (1.001-1.035); Urobilinogen,Urine Negative mg/dL (0.0-1.0); WBC,Urine 2 /hpf (0-5)
[2024-09-28 19:01] LABS: Sodium 123 mMol/L (136-145)
--- NOTE | 2024-09-28 19:20 | PC.CC ---
Pt Sudheer Wall is a 73 yr old male admitted to hospitalist services for severe hypoosmotic hyponatremia, mechanical fall, chest pain 2/2 to fall. [employer] met with pt and his Aleyda Wall [phone] at bedside to complete initial assessment. At time of encounter pt is noted to be alert and oriented to person, place and situation. Pt expressed understanding admission order. Pt able to confirm demographic information. Pt is from home [address] [place] [address], where he lives with his . Pt identifies his as surrogate DM. In the home pt reports being independent with ambulation and with completion of his ADLs. Pt reports he is diabetic on insulin for management. Pt is not on dialysis. Pt does not require supplemental O2 in the home. Pt is followed by Aleyda Mac at [facility]. At time of D/c pt will return home with his providing transport. Pt reports feeling safe in the home. Pt has access to all working utilities and food items.
--- NOTE | 2024-09-28 19:30 | PC.NURSE ---
Report given to spinal surgeon
[2024-09-28] MEDS: PANTOPRAZOLE 20 MG TABLET PO (19:36)
[2024-09-28 20:17] LABS: Chloride,Urine Random 35.1 mMol/L (55.0-125.0); Creatinine,Random Urine 44 mg/dL (30-125); Potassium,Urine Random 60 mMol/L (12-62)
[2024-09-28] MEDS: ATORVASTATIN CALCIUM 20 MG TABLET 40 MG PO (21:49)
[2024-09-28] MEDS: CLOPIDOGREL BISULFATE 75 MG TABLET PO (21:49)
[2024-09-28] MEDS: HEPARIN SOD INJ 5000 UNIT/ML VIAL SC (21:50)
[2024-09-28 22:24] LABS: Sodium 125 mMol/L (136-145)
[2024-09-29] VITALS (11 sets, daily range): BP systolic 98–155; BP diastolic 61–75; PULSE 58–76; RESP 18; TEMP 36.2–36.8; O2SAT 95–98
[2024-09-29 01:12] LABS: Sodium 127 mMol/L (136-145)
[2024-09-29 03:31] LABS: Basophils # (Auto) 0.1 Thou/mm3 (0.0-0.2); Basophils % (Auto) 1 % (0-2.5); Eosinophils # (Auto) 0.2 Thou/mm3 (0.0-0.5); Eosinophils % (Auto) 2 % (0-10); Hematocrit 37.2 % (41.0-53.0); Hemoglobin 13.3 g/dL (13.5-16.0); Immature Granulocytes % (Auto) 2 % (0-0); Immature Granulocytes Auto 0.14 Thou/mm3 (0.00-0.00); Lymphocytes # (Auto) 0.8 Thou/mm3 (1.0-4.8); Lymphocytes % (Auto) 12 % (10-50); Mean Corpuscular HGB Conc 35.8 g/dl (31.0-37.0); Mean Corpuscular Hemoglobin 32.8 pg (25.0-35.0); Mean Corpuscular Volume 92 fL (80-100); Monocytes % (Auto) 15 % (0-12); Neutrophils # (Auto) 4.5 Thou/mm3 (1.8-7.7); Neutrophils % (Auto) 68 % (37-80); Nucleated Red Blood Cell % 0 /100 WBC (0); Platelet Count 217 Thou/mm3 (140-440); RDW Standard Deviation 42.5 fL (35.1-43.9); Red Blood Count 4.05 Miln/mm3 (4.50-5.90); White Blood Count 6.7 Thou/mm3 (3.8-10.6)
[2024-09-29 03:47] LABS: Glucose Estimated Average 108 mg/dL (80-131); Hemoglobin A1C 5.4 % Hgb (4.8-6.0)
[2024-09-29 03:55] LABS: Alanine Aminotransferase 12 U/L (10-49); Albumin, Serum 3.8 gm/dL (3.4-4.8); Albumin/Globulin Ratio 1.5 (1.2-2.2); Alkaline Phosphatase 82 U/L (46-116); Anion Gap 7 (7-16); Aspartate Amino Transferase 17 U/L (0-34); BUN/Creatinine Ratio 17 Ratio (12-20); Bilirubin,Total 0.8 mg/dL (0.3-1.2); Blood Urea Nitrogen 12 mg/dL (9-23); Calcium 9.5 mg/dL (8.3-10.6); Calcium (Corrected) 9.7 mg/dL (8.5-10.1); Carbon Dioxide 24.3 mMol/L (20.0-31.0); Chloride 98 mMol/L (98-107); Creatinine (Component) 0.7 mg/dL (0.6-1.3); Estimated Creatinine Clearance 101.6 mL/min (>60); Globulin 2.6 gm/dL (2.3-3.5); Glucose 115 mg/dL (74-106); Magnesium 1.9 mg/dL (1.6-2.6); Osmolality,Calculated 259 (275-295); Phosphorous 4.1 mg/dL (2.4-5.1); Potassium 4.2 mMol/L (3.4-5.1); Sodium 129 mMol/L (136-145); Total Protein 6.4 gm/dL (5.7-8.2); eGFR > 60 See Note
[2024-09-29 03:57] LABS: Vitamin B12 267 pg/mL (211-911)
[2024-09-29 04:10] LABS: Cardiac Risk Estimate 2.1 RATIO (4.0-6.7); Cholesterol 112 mg/dL (132-200); HDL Cholesterol 54 mg/dL (40-60); LDL Cholesterol,Calculated 43 mg/dL (0-130); Thyroid Stimulating Hormone 3.12 uIU/mL (0.55-4.78); Triglycerides 75 mg/dL (30-150)
[2024-09-29] MEDS: HEPARIN SOD INJ 5000 UNIT/ML VIAL SC ×3 (05:28→21:21)
[2024-09-29] MEDS: DEXTROSE 5%-WATER 1,000 ML 75 ML IV (05:28)
[2024-09-29] MEDS: SUCRALFATE 1 GM TABLET PO (05:28)
[2024-09-29] MEDS: LOSARTAN POTASSIUM 25 MG TABLET 100 MG PO (08:24)
[2024-09-29] MEDS: TAMSULOSIN HCL 0.4 MG CAPSULE PO (08:25)
[2024-09-29] MEDS: ASPIRIN EC 81 MG TABEC PO (08:25)
[2024-09-29] MEDS: PANTOPRAZOLE 20 MG TABLET PO (08:25)
--- NOTE | 2024-09-29 08:35 | ESPR_ITS ---
Documentation for date of: 09/29/24 Subjective Subjective Interval history: Mr. Wall is a 39-year-old lithuanian-speaking patient with past medical history of diabetes, hypertension, hyperlipidemia, coronary artery disease status post CABG 2020 and BPH who presented to [facility] with a chief complaint of chest pain, patient reported that chest pain started earlier this morning, describes chest pain as dull ache 05/29, reported feeling of heaviness in the chest radiating to left arm. Patient denies any nausea,vomiting or diaphoresis associated with pain, he reported that he had similar complaint in 2020 when he was admitted for chest pain and was eventually found to have triple-vessel disease for which he was transferred to [facility]. Patient reports following up with Dr. Rai outpatient in the past, unable to follow-up with him due to insurance difficulties, [facility] Patient was seen at nephrology practice about a year ago for the concern of microalbuminuria. Patient otherwise has no current complaints, denies any shortness of breath. ED Course: ED Vitals: On presentation BP 209/114, P79, RR 18, temp 99.1, O2 sat 99 on room air ED Labs: ED labs significant for WBC 11.5, neutrophilia, sodium 119, chloride 86, glucose 120, osmolality 240, BNP 143, troponins negative, TSH 2.14. Repeat sodium 119 ED Imaging: EKG in ED shows no ST elevation, chest x-ray significant for no pneumonia/pulmonary edema ED Treatment:Patient was given clonidine 0.3 mg x 1, metoprolol tartrate 50 mg x 1, ibuprofen 400 mg, acetaminophen/codeine phosphate 2 tabs and was started on NS 125 cc/h Current medications patient currently on Janumet, metoprolol tartrate, losartan, Farxiga, Kerendia, atorvastatin, clopidogrel, aspirin, tamsulosin, omeprazole, sucralfate 09/28: Nephrology consulted for management of hypoosmolar hypochloremic hyponatremia. Patient denies any recent increase in water intake, denies any alcohol intake, denies any history of hyponatremia. He does complain of dizziness which started recently, does endorse history of multiple falls, most recent fall described as tripping over a toy box and hitting his head, bruise noted on forehead on the left side. Patient's also reports that patient has decreased p.o. intake and recently has lost weight. 09/29: Sodium overcorrected to 127 was started on D5W 75cc/h, repeat sodium 129, increased the rate of D5W to 100cc/h. Patient denies any neurological symptoms, denies any dizziness, has good PO intake. Urine electrolyes show sodium of 18.2, low urine sodium indicates high suspision of true hyponatremia due to poor PO intake. Requested nursing team to enforce strict I&O's. Otherwise patient has no current complaints, denies chest pain. Will continue to correct sodium with goal of 4-6mEq every 24 hours, will monitor closely with sodium checks every 4 hours. Recommend PT consult. Exam Vital Signs Temp Pulse Resp BP Pulse Ox O2 Del Method 97.3 F 67 18 131/65 H 97 Room Air 09/29/24 07:36 09/29/24 08:24 09/29/24 07:36 09/29/24 08:24 09/29/24 07:36 09/29/24 07:36 Narrative Exam Physical Exam General: Awake and in no acute distress. Conversational and non-toxic appearing. HEENT: Normocephalic, atraumatic, mucous membranes moist. Bruise noted on forehead, left side Heart: Regular rate and rhythm, no murmurs. Lungs: Clear to auscultation with no wheezing or crackles. Abdomen: Soft, obese, nondistended, nontender, positive bowel sounds. ?No guarding or rebound tenderness. Neurologic: Alert and oriented x3, no gross neurological deficit, and patient able to move all 4 extremities. Extremities: No edema. Bilateral venous stasis/dermatitis noted bilateral legs. Skin: No rash or ecchymoses. Objective Labs 09/30/24 04:48 09/30/24 12:09 Labs: Laboratory Results - last 24 hr 09/28/24 09/28/24 09/28/24 10:57 16:05 17:17 WBC 11.5 H RBC 4.54 Hgb 15.0 Hct 41.7 MCV 92 MCH 33.0 MCHC 36.0 RDW Std Deviation 41.7 Plt Count 239 Neut % (Auto) 79 Lymph % (Auto) 7 L [place] % (Auto) 11 Eos % (Auto) 1 Baso % (Auto) 1 Neut # (Auto) 9.1 H Lymph # (Auto) 0.8 L [place] # (Auto) 1.3 H Eos # (Auto) 0.1 Baso # (Auto) 0.1 Immature Gran # (Auto) 0.23 H Absolute Nucleated RBC 0.00 Immature Gran % 2 H Nucleated RBC % 0 Sodium 119 L* 119 L* Potassium 5.1 Chloride 86 L Carbon Dioxide 27.6 Anion Gap 5 L BUN 11 Creatinine 0.8 Estim Creat Clear Calc 88.5 eGFR > 60 BUN/Creatinine Ratio [address] Glu mg/dL Hemoglobin A1c Calculated Osmolality 240 L Calcium 10.0 Corrected Calcium 10.0 Phosphorus Magnesium 1.7 Total Bilirubin 1.0 AST 17 ALT 16 Alkaline Phosphatase 98 Troponin I < 0.020 B-Natriuretic Peptide 143 H Total Protein 7.8 Albumin 4.8 Globulin 3.0 Albumin/Globulin Ratio 1.6 Triglycerides Cholesterol LDL Cholesterol, Calc HDL Cholesterol Cholesterol/HDL Ratio Vitamin B12 TSH 2.14 Ur Collection Type Clean Catch Urine Color Lt-Yellow Urine Clarity Clear Urine pH 7.0 Ur Specific [place] 1.014 Urine Protein 1+ A Urine Glucose (UA) 4+ A Urine Ketones Negative Urine Blood Negative Urine Nitrite Negative Urine Bilirubin Negative Urine Urobilinogen (Auto) Negative Ur Leukocyte Esterase Negative Urine RBC 4 H Urine WBC 2 Ur Squamous Epith Cells 0 Urine Bacteria None Ur Random Creatinine 44 Ur Random Sodium 18.2 L Ur Random Potassium 60 Ur Random Chloride 35.1 L Ur Random Urea Nitrogn 313.0 L 09/28/24 09/28/24 09/29/24 18:42 21:47 00:51 WBC RBC Hgb Hct MCV MCH MCHC RDW Std Deviation Plt Count Neut % (Auto) Lymph % (Auto) [place] % (Auto) Eos % (Auto) Baso % (Auto) Neut # (Auto) Lymph # (Auto) [place] # (Auto) Eos # (Auto) Baso # (Auto) Immature Gran # (Auto) Absolute Nucleated RBC Immature Gran % Nucleated RBC % Sodium 123 L 125 L 127 L Potassium Chloride Carbon Dioxide Anion Gap BUN Creatinine Estim Creat Clear Calc eGFR BUN/Creatinine Ratio Glucose Estimated Ave Glu mg/dL Hemoglobin A1c Calculated Osmolality Calcium Corrected Calcium Phosphorus Magnesium Total Bilirubin AST ALT Alkaline Phosphatase Troponin I B-Natriuretic Peptide Total Protein Albumin Globulin Albumin/Globulin Ratio Triglycerides Cholesterol LDL Cholesterol, Calc HDL Cholesterol Cholesterol/HDL Ratio Vitamin B12 TSH Ur Collection Type Urine Color Urine Clarity Urine pH Ur Specific [place] Urine Protein Urine Glucose (UA) Urine Ketones Urine Blood Urine Nitrite Urine Bilirubin Urine Urobilinogen (Auto) Ur Leukocyte Esterase Urine RBC Urine WBC Ur Squamous Epith Cells Urine Bacteria Ur Random Creatinine Ur Random Sodium Ur Random Potassium Ur Random Chloride Ur Random Urea Nitrogn 09/29/24 03:24 WBC 6.7 D RBC 4.05 L Hgb 13.3 L Hct 37.2 L MCV 92 MCH 32.8 MCHC 35.8 RDW Std Deviation 42.5 Plt Count 217 Neut % (Auto) 68 Lymph % (Auto) 12 [place] % (Auto) 15 H Eos % (Auto) 2 Baso % (Auto) 1 Neut # (Auto) 4.5 Lymph # (Auto) 0.8 L [place] # (Auto) 1.0 H Eos # (Auto) 0.2 Baso # (Auto) 0.1 Immature Gran # (Auto) 0.14 H Absolute Nucleated RBC 0.00 Immature Gran % 2 H Nucleated RBC % 0 Sodium 129 L Potassium 4.2 D Chloride 98 Carbon Dioxide 24.3 Anion Gap 7 BUN 12 Creatinine 0.7 Estim Creat Clear Calc 101.6 eGFR > 60 BUN/Creatinine Ratio 17 Glucose [address] Glu mg/dL 108 Hemoglobin A1c 5.4 Calculated Osmolality 259 L Calcium 9.5 Corrected Calcium 9.7 Phosphorus 4.1 Magnesium 1.9 Total Bilirubin 0.8 AST 17 ALT 12 Alkaline Phosphatase 82 Troponin I B-Natriuretic Peptide Total Protein 6.4 Albumin 3.8 D Globulin 2.6 Albumin/Globulin Ratio 1.5 Triglycerides 75 Cholesterol 112 L LDL Cholesterol, Calc 43 HDL Cholesterol 54 Cholesterol/HDL Ratio 2.1 L Vitamin B12 267 TSH 3.12 Ur Collection Type Urine Color Urine Clarity Urine pH Ur Specific [place] Urine Protein Urine Glucose (UA) Urine Ketones Urine Blood Urine Nitrite Urine Bilirubin Urine Urobilinogen (Auto) Ur Leukocyte Esterase Urine RBC Urine WBC Ur Squamous Epith Cells Urine Bacteria Ur Random Creatinine Ur Random Sodium Ur Random Potassium Ur Random Chloride Ur Random Urea Nitrogn Quality Measures Quality Measures none Advance care planning discussed with:: patient Assessment & Plan Assessment Current Active Medications: Generic Name Dose Route Start Last Admin Trade Name Freq PRN Reason Stop Dose Admin Acetaminophen 650 mg 09/28/24 15:35 Acetaminophen 325 Mg Tablet PO 10/28/24 15:34 Q6H PRN Fever >100.4 Acetaminophen 650 mg 09/28/24 15:35 Acetaminophen 325 Mg Tablet PO 10/28/24 15:34 Q6H PRN PAIN SCALE 1-3 (mild Aspirin 81 mg 09/28/24 16:00 09/29/24 08:25 Aspirin Ec 81 Mg Tabec PO 10/28/24 15:59 81 mg QDAY LORA Administration Atorvastatin Calcium 40 mg 09/28/24 21:00 09/28/24 21:49 Atorvastatin Calcium 20 Mg Tablet PO 10/28/24 20:59 40 mg HS LORA Administration Clopidogrel Bisulfate 75 mg 09/28/24 21:00 09/28/24 21:49 Clopidogrel Bisulfate 75 Mg Tablet PO 10/28/24 20:59 75 mg HS LORA Administration Dextrose 25 ml 09/28/24 15:47 Dextrose 50%-Water Inj 50 Ml Syringe IV 10/28/24 15:46 Q15MIN PRN BG 50-70 responsive npo pt Dextrose 50 ml 09/28/24 15:47 Dextrose 50%-Water Inj 50 Ml Syringe IV 10/28/24 15:46 Q15MIN PRN BG <50 OR BG <70 & pt unresponsive Glucagon 1 mg 09/28/24 15:47 Glucagon Inj 1 Mg Vial IM Q15MIN PRN BG <70, and no IV access Heparin Sodium (Porcine) 5,000 unit 09/28/24 22:00 09/29/24 05:28 Heparin Sod Inj 5000 Unit/Ml Vial SC 10/12/24 21:59 5,000 unit Q8HR LORA Administration Dextrose 1,000 mls @ 100 mls/hr 09/29/24 06:58 D5w IV 09/29/24 16:57 .Q10H LORA Insulin Human Lispro 0 unit 09/28/24 17:00 09/29/24 07:25 Insulin Lispro (Admelog) 1 Unit/0.01 Ml Unit SC 10/28/24 16:59 Not Given ACHS LORA Protocol Losartan Potassium 100 mg 09/29/24 09:00 09/29/24 08:24 Losartan Potassium 25 Mg Tablet PO 10/29/24 08:59 100 mg QDAY LORA Administration Ondansetron HCl 4 mg 09/28/24 15:35 Ondansetron Inj 2 Mg/Ml Inj 2 Ml IV 10/28/24 15:34 Q6H PRN NAUSEA OR VOMITING Protocol Oxycodone/Acetaminophen 1 tab 09/28/24 15:35 Oxycodone/Apap 5/325 Tablet PO 10/03/24 15:34 Q6H PRN PAIN SCALE 4-6 (Moderate Pantoprazole Sodium 20 mg 09/28/24 16:00 09/29/24 08:25 Pantoprazole 20 Mg Tablet PO 10/28/24 15:59 20 mg QDAY LORA Administration Sucralfate 1 gm 09/29/24 06:00 09/29/24 05:28 Sucralfate 1 Gm Tablet PO 10/29/24 05:59 1 gm ACBR LORA Administration Tamsulosin HCl 0.4 mg 09/29/24 09:00 09/29/24 08:25 Tamsulosin Hcl 0.4 Mg Capsule PO 10/29/24 08:59 0.4 mg QDAY LORA Administration Plan Summary: is a 39-year-old lithuanian-speaking patient with past medical history of diabetes, hypertension, hyperlipidemia, coronary artery disease status post CABG 2020 and BPH who presented to [facility] with a chief complaint of chest pain. Nephrology consulted for management of hypoosmolar hypochloremic hyponatremia. # Hypovolemic hypoosmolar hypochloremic hyponatremia, resolving -Denies any history of hyponatremia, not on any diuretics, unable to provide reliable detail of current p.o. medication, denies any neurological symptoms, no neurological deficits seen on exam - at bedside does report decreased p.o. intake, reports recent weight loss. Does endorse increased dizziness causing multiple falls recently. -Patient does not look fluid overloaded at bedside, does report decreased p.o. intake, considering hypovolemic hyponatremia due to decreased p.o. intake. -Patient's sodium 119 on presentation, repeat sodium 119. Patient was started on IV NS in ED 125 cc/h. -Urine electrolytes significant for urine creatinine 44, sodium 18.2, potassium 60, urine chloride 35.1, urine random urea nitrogen 313. -Overnight patient's sodium overcorrected to 127, was started on D5W 75 cc/h -Repeat sodium on D5W 75 cc/h was 129, increased rate of D5W to 100 cc/h Plan: -Continue IV D5W, hold if sodium decreases. -Hold fluids, target sodium in 24 hours 123-125. -Continue sodium checks every 4 hours. -Pending med reconciliation, will confirm home meds in a.m. -Correct sodium with goal of 4 to 6 mEq in 24 hours -Avoid nephrotoxic medication -Renally dose medication -Fall precautions -Recommend physical therapy referral # Cardiac chest pain, resolved # Coronary artery disease status post CABG 2020 Patient did present with chest pain, reported dull ache radiating to left arm, troponin negative in ED, EKG negative for any ST elevation Denies any chest pain currently Management per primary team # Diabetes mellitus # Hypertension # Hyperlipidemia # BPH Management as per primary team Case discussed with Attending physician Dr. Rosales. Paula Ugarte PGY1 Attending Provider Attestation/Addendum Patient seen and examined with resident physician Dr. Ugarte. Note reviewed, agree with findings and recommendations. Sodium significantly tereza to 129. Was started on D5W. This afternoon his sodium dropped to 125 and remained at 125 for 6 hours. D5W was discontinued. Started salt tablets. Clinically patient looks comfortable with no neurological symptoms. Will monitor serum sodium closely. Plan of care discussed with primary team.
--- NOTE | 2024-09-29 08:43 | ESPR_ITS ---
Documentation for date of: 09/29/24 Subjective Subjective Interval history: No acute overnight events. Slept okay, feeling well today. Tolerating oral intake. Denies fever, chills, headaches, chest pain, sob, cough, GI or urinary symptoms. Exam Vital Signs Temp Pulse Resp BP Pulse Ox O2 Del Method 97.3 F 67 18 131/65 H 97 Room Air 09/29/24 07:36 09/29/24 08:24 09/29/24 07:36 09/29/24 08:24 09/29/24 07:36 09/29/24 07:36 Narrative Exam GENERAL: Ill-appearing elderly male, audible wheezing, on room air, mild distress 2/2 wheezing HEENT: NCAT.?PEMA. Oral mucosa is moist. Patent Nares NECK: Supple, nontender, no thyromegaly, no meningismus, no JVD, no step offs CHEST: Symmetrical, atraumatic, and with equal expansion, Nontender on palpation no deformity and no crepitus. CARDIOVASCULAR: Tachycardic, regular rate, no m/g/r LUNGS: Coarse breath sound bilaterally, audible wheezing without stethoscope, no rales. Symmetrical chest rise. No intercostal subcostal retraction. ABDOMEN: Soft, flat, nontender. No guarding/rebound tenderness/masses. +BS EXTREMITIES: Nontender.? No edema/cyanosis.?Moves all 4 extremities well, with full ROM and good CSM. SKIN: Warm and dry, no jaundice/rashes. 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 MSK: No lumbar or midline, no CVA, no paraspinal muscle spasm or tenderness. NEURO: YOU x4, CN II-XII grossly intact.?No focal neurologic deficits. PSYCHIATRIC: Normal mood and affect, cooperative, no SI or HI or hallucinations. Objective Labs 09/30/24 04:48 09/30/24 04:48 Labs: Laboratory Results - last 24 hr 09/28/24 09/28/24 09/28/24 10:57 16:05 17:17 WBC 11.5 H RBC 4.54 Hgb 15.0 Hct 41.7 MCV 92 MCH 33.0 MCHC 36.0 RDW Std Deviation 41.7 Plt Count 239 Neut % (Auto) 79 Lymph % (Auto) 7 L Collin % (Auto) 11 Eos % (Auto) 1 Baso % (Auto) 1 Neut # (Auto) 9.1 H Lymph # (Auto) 0.8 L Collin # (Auto) 1.3 H Eos # (Auto) 0.1 Baso # (Auto) 0.1 Immature Gran # (Auto) 0.23 H Absolute Nucleated RBC 0.00 Immature Gran % 2 H Nucleated RBC % 0 Sodium 119 L* 119 L* Potassium 5.1 Chloride 86 L Carbon Dioxide 27.6 Anion Gap 5 L BUN 11 Creatinine 0.8 Estim Creat Clear Calc 88.5 eGFR > 60 BUN/Creatinine Ratio 14 [address]ucose [address] Glu mg/dL Hemoglobin A1c Calculated Osmolality 240 L Calcium 10.0 Corrected Calcium 10.0 Phosphorus Magnesium 1.7 Total Bilirubin 1.0 AST 17 ALT 16 Alkaline Phosphatase 98 Troponin I < 0.020 B-Natriuretic Peptide 143 H Total Protein 7.8 Albumin 4.8 Globulin 3.0 Albumin/Globulin Ratio 1.6 Triglycerides Cholesterol LDL Cholesterol, Calc HDL Cholesterol Cholesterol/HDL Ratio Vitamin B12 TSH 2.14 Ur Collection Type Clean Catch Urine Color Lt-Yellow Urine Clarity Clear Urine pH 7.0 Ur Specific Dameron 1.014 Urine Protein 1+ A Urine Glucose (UA) 4+ A Urine Ketones Negative Urine Blood Negative Urine Nitrite Negative Urine Bilirubin Negative Urine Urobilinogen (Auto) Negative Ur Leukocyte Esterase Negative Urine RBC 4 H Urine WBC 2 Ur Squamous Epith Cells 0 Urine Bacteria None Ur Random Creatinine 44 Ur Random Sodium 18.2 L Ur Random Potassium 60 Ur Random Chloride 35.1 L Ur Random Urea Nitrogn 313.0 L 09/28/24 09/28/24 09/29/24 18:42 21:47 00:51 WBC RBC Hgb Hct MCV MCH MCHC RDW Std Deviation Plt Count Neut % (Auto) Lymph % (Auto) Collin % (Auto) Eos % (Auto) Baso % (Auto) Neut # (Auto) Lymph # (Auto) Collin # (Auto) Eos # (Auto) Baso # (Auto) Immature Gran # (Auto) Absolute Nucleated RBC Immature Gran % Nucleated RBC % Sodium 123 L 125 L 127 L Potassium Chloride Carbon Dioxide Anion Gap BUN Creatinine Estim Creat Clear Calc eGFR BUN/Creatinine Ratio Glucose Estimated Ave Glu mg/dL Hemoglobin A1c Calculated Osmolality Calcium Corrected Calcium Phosphorus Magnesium Total Bilirubin AST ALT Alkaline Phosphatase Troponin I B-Natriuretic Peptide Total Protein Albumin Globulin Albumin/Globulin Ratio Triglycerides Cholesterol LDL Cholesterol, Calc HDL Cholesterol Cholesterol/HDL Ratio Vitamin B12 TSH Ur Collection Type Urine Color Urine Clarity Urine pH Ur Specific Dameron Urine Protein Urine Glucose (UA) Urine Ketones Urine Blood Urine Nitrite Urine Bilirubin Urine Urobilinogen (Auto) Ur Leukocyte Esterase Urine RBC Urine WBC Ur Squamous Epith Cells Urine Bacteria Ur Random Creatinine Ur Random Sodium Ur Random Potassium Ur Random Chloride Ur Random Urea Nitrogn 09/29/24 03:24 WBC 6.7 D RBC 4.05 L Hgb 13.3 L Hct 37.2 L MCV 92 MCH 32.8 MCHC 35.8 RDW Std Deviation 42.5 Plt Count 217 Neut % (Auto) 68 Lymph % (Auto) 12 Collin % (Auto) 15 H Eos % (Auto) 2 Baso % (Auto) 1 Neut # (Auto) 4.5 Lymph # (Auto) 0.8 L Collin # (Auto) 1.0 H Eos # (Auto) 0.2 Baso # (Auto) 0.1 Immature Gran # (Auto) 0.14 H Absolute Nucleated RBC 0.00 Immature Gran % 2 H Nucleated RBC % 0 Sodium 129 L Potassium 4.2 D Chloride 98 Carbon Dioxide 24.3 Anion Gap 7 BUN 12 Creatinine 0.7 Estim Creat Clear Calc 101.6 eGFR > 60 BUN/Creatinine Ratio 17 Glucose [address] Glu mg/dL 108 Hemoglobin A1c 5.4 Calculated Osmolality 259 L Calcium 9.5 Corrected Calcium 9.7 Phosphorus 4.1 Magnesium 1.9 Total Bilirubin 0.8 AST 17 ALT 12 Alkaline Phosphatase 82 Troponin I B-Natriuretic Peptide Total Protein 6.4 Albumin 3.8 D Globulin 2.6 Albumin/Globulin Ratio 1.5 Triglycerides 75 Cholesterol 112 L LDL Cholesterol, Calc 43 HDL Cholesterol 54 Cholesterol/HDL Ratio 2.1 L Vitamin B12 267 TSH 3.12 Ur Collection Type Urine Color Urine Clarity Urine pH Ur Specific Dameron Urine Protein Urine Glucose (UA) Urine Ketones Urine Blood Urine Nitrite Urine Bilirubin Urine Urobilinogen (Auto) Ur Leukocyte Esterase Urine RBC Urine WBC Ur Squamous Epith Cells Urine Bacteria Ur Random Creatinine Ur Random Sodium Ur Random Potassium Ur Random Chloride Ur Random Urea Nitrogn Quality Measures Quality Measures none Advance care planning discussed with:: patient Assessment & Plan Assessment Current Active Medications: Generic Name Dose Route Start Last Admin Trade Name Freq PRN Reason Stop Dose Admin Acetaminophen 650 mg 09/28/24 15:35 Acetaminophen 325 Mg Tablet PO 10/28/24 15:34 Q6H PRN Fever >100.4 Acetaminophen 650 mg 09/28/24 15:35 Acetaminophen 325 Mg Tablet PO 10/28/24 15:34 Q6H PRN PAIN SCALE 1-3 (mild Aspirin 81 mg 09/28/24 16:00 09/29/24 08:25 Aspirin Ec 81 Mg Tabec PO 10/28/24 15:59 81 mg QDAY LORA Administration Atorvastatin Calcium 40 mg 09/28/24 21:00 09/28/24 21:49 Atorvastatin Calcium 20 Mg Tablet PO 10/28/24 20:59 40 mg HS LORA Administration Clopidogrel Bisulfate 75 mg 09/28/24 21:00 09/28/24 21:49 Clopidogrel Bisulfate 75 Mg Tablet PO 10/28/24 20:59 75 mg HS LORA Administration Dextrose 25 ml 09/28/24 15:47 Dextrose 50%-Water Inj 50 Ml Syringe IV 10/28/24 15:46 Q15MIN PRN BG 50-70 responsive npo pt Dextrose 50 ml 09/28/24 15:47 Dextrose 50%-Water Inj 50 Ml Syringe IV 10/28/24 15:46 Q15MIN PRN BG <50 OR BG <70 & pt unresponsive Glucagon 1 mg 09/28/24 15:47 Glucagon Inj 1 Mg Vial IM Q15MIN PRN BG <70, and no IV access Heparin Sodium (Porcine) 5,000 unit 09/28/24 22:00 09/29/24 05:28 Heparin Sod Inj 5000 Unit/Ml Vial SC 10/12/24 21:59 5,000 unit Q8HR LORA Administration Dextrose 1,000 mls @ 100 mls/hr 09/29/24 06:58 D5w IV 09/29/24 16:57 .Q10H LORA Insulin Human Lispro 0 unit 09/28/24 17:00 09/29/24 07:25 Insulin Lispro (Admelog) 1 Unit/0.01 Ml Unit SC 10/28/24 16:59 Not Given ACHS LORA Protocol Losartan Potassium 100 mg 09/29/24 09:00 09/29/24 08:24 Losartan Potassium 25 Mg Tablet PO 10/29/24 08:59 100 mg QDAY LORA Administration Ondansetron HCl 4 mg 09/28/24 15:35 Ondansetron Inj 2 Mg/Ml Inj 2 Ml IV 10/28/24 15:34 Q6H PRN NAUSEA OR VOMITING Protocol Oxycodone/Acetaminophen 1 tab 09/28/24 15:35 Oxycodone/Apap 5/325 Tablet PO 10/03/24 15:34 Q6H PRN PAIN SCALE 4-6 (Moderate Pantoprazole Sodium 20 mg 09/28/24 16:00 09/29/24 08:25 Pantoprazole 20 Mg Tablet PO 10/28/24 15:59 20 mg QDAY LORA Administration Sucralfate 1 gm 09/29/24 06:00 09/29/24 05:28 Sucralfate 1 Gm Tablet PO 10/29/24 05:59 1 gm ACBR LORA Administration Tamsulosin HCl 0.4 mg 09/29/24 09:00 09/29/24 08:25 Tamsulosin Hcl 0.4 Mg Capsule PO 10/29/24 08:59 0.4 mg QDAY LORA Administration Plan In summary: 73 year-old male with PMHx of CAD, s/p CABG 2.5 years ago, HTN, HLD, diabetes, and arthritis admitted for asymptomatic severe hyponatremia. Patient started on fluids, sodium checks, pending nephrology recommendation. Baseline Echocardiogram ordered. Appreciate nephrology's recommendations. 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 Started IV fluids at 75 cc/HR, pending baseline echocardiogram ? Sodium checks Q4H ? Sodium correction rate 6-8 mEq in 24 hours # Mechanical fall # Chest pain, likely MSK 2/2 fall Admits to mechanical fall on Friday night after tripping over a misplaced object on the floor Fall may be the cause of hyponatremia (SIADH) rather than a result of hyponatremia Exam showed left forehead facial laceration, nontender, no active bleed, no skull deformities, otherwise no focal neurological deficits, cranial nerve exam grossly intact. Reproducible chest tenderness over the mid sternum, without deformities, CXR showed no fracture Subjective paresthesia of distal left extremity, normal physical exam ? Monitor for worsening symptoms, consider CT head ? B12 267, gave 1 shot B12 ? ANALGESICS ordered # CAD, s/p CABG 2.5 years ago. # Hypertensive urgency (resolved) # Hx of HTN, HLD Admission BP 209/114 without signs of EOD, improved with CLONIDINE, patient skipped home ANTIHYPERTENSIVE dose today. Denies cardiogenic chest pain, normal troponins, normal EKG Pending lipid panel, TSH Target LDL should be less than 55 Patient should be on high intensity statin, however currently on 40 mg ? Resumed ASPIRIN 81 mg daily ? Resumed PLAVIX 75 mg HS ? Resumed LOSARTAN 100 mg daily ? Resumed ATORVASTATIN 40 mg HS ? Resume METOPROLOL 50 mg daily # T2DM, well-controlled A1c 5.4 ? Follow-up A1c ? INSULIN sliding scale # Arthritis ? TYLENOL as above Health maintenance Diet: Cardiac GI prophylaxis: PROTONIX DVT prophylaxis: HEPARIN subcu, SCDs Antibiotics: Not indicated CODE STATUS: DNR Disposition: Correcting hyponatremia, pending nephrology recommendations Patient case was discussed with attending, Dorian Arrington MD and senior residents Dr. Phillip and Dr. Cornelius. Almita Hoffman, DO PGYI Mr Wall is a 73 year old with PMHx of CAD, s/p CABG 2.5 years ago, HTN, HLD, diabetes, and arthritis, who is admitted for severe hyponatremia Na 119. Recent history of GLMF, will supplement vitamins. Nephrology is consulted for hypotonic hyponatremia, severe. Patient was started on NS, Na improved 119 --> 125. Patient was started on D5W by Nephrology yesterday. 09/29: Na @ 125, will discontinue D5 for now. Patient started fluid restriction of 1500cc, hold off on NS until further Nephrology recommendations. Na 125 -> 126 -> 125, will continue q4HR sodium checks with goal correction of hyponatremia by 4-6 mmol in 24 hours. Urine Na low, likely etiology polydipsia vs. SIADH. Patient examined and case discussed with the team including attending physician. Note reviewed, I agree with the care plan as documented. - Donnie Cornelius MD, PGY 2 Attending Provider Attestation/Addendum I reviewed labs, imaging, EKG, home medications and prior available records. Face to face evaluation was performed by me. I have personally examined the patient and discussed assessment and plan with the IM team. I reviewed the resident note and agree with the plan with exceptions as below. 73-year-old male with history of CAD status post CABG who presented with a chief complaint of chest pain in the setting of ground-level fall. He was found to have severe hyponatremia. Ground-level fall: Likely in setting of generalized weakness which could be from hyponatremia. Management as below. Management of pain as needed. Ordered PT evaluation. Hyponatremia: Improved. Etiology is unclear but could be contributed to decreased oral intake. Medications reviewed. Patient appears to be dehydrated. Started the patient on normal saline. Held due to overcorrection. Monitor BMP. Avoid rapid correction. Send urine studies. Nephrology was consulted. Chest pain at rest: Appears to be musculoskeletal in the setting of ground-level fall. Troponin is negative. Management as above. Generalized weakness: Likely in the setting of dehydration versus hyponatremia. Management as above. CAD status post CABG: Resumed home aspirin, Plavix and atorvastatin.
[2024-09-29 09:02] LABS: Sodium 126 mMol/L (136-145)
[2024-09-29 10:01] LABS: Sodium 125 mMol/L (136-145)
[2024-09-29] MEDS: CYANOCOBALAMIN INJ 1,000 mCg/ML VIAL 1000 MCG IM (10:07)
[2024-09-29 14:07] LABS: Sodium 126 mMol/L (136-145)
[2024-09-29] MEDS: ACETAMINOPHEN 325 MG TABLET 650 MG PO (14:13)
[2024-09-29] MEDS: INSULIN LISPRO (AdmeLOG) 1 UNIT/0.01 ML UNIT SC ×2 (17:04→20:20)
[2024-09-29 17:36] LABS: Sodium 125 mMol/L (136-145)
[2024-09-29] MEDS: SODIUM CHLORIDE 1 GM TABLET PO (17:55)
[2024-09-29] MEDS: ATORVASTATIN CALCIUM 20 MG TABLET 40 MG PO (20:19)
[2024-09-29] MEDS: CLOPIDOGREL BISULFATE 75 MG TABLET PO (20:19)
[2024-09-29] MEDS: oxyCODONE/APAP 5/325 TABLET 1 TAB PO (21:19)
[2024-09-29 21:36] LABS: Sodium 126 mMol/L (136-145)
--- NOTE | 2024-09-29 23:48 | PC.NURSE ---
Addendum entered by Jose Alberto Diaz RN 09/29/24 23:51: Dr. Kruger will put an order. Original Note: Pt. complaining of pain in his right knee. Percocet 5/325 was last given at 2118. Next dose is due at 318. RN will notify hospitalists.
[2024-09-29] MEDS: LIDOCAINE 5% 1 PATCH TOP (23:58)
[2024-09-30] VITALS (7 sets, daily range): BP systolic 123–144; BP diastolic 66–81; PULSE 88–106; RESP 16–18; TEMP 37–37.4; O2SAT 93–96
[2024-09-30 01:45] LABS: Sodium 126 mMol/L (136-145)
--- NOTE | 2024-09-30 01:55 | PC.NURSE ---
Patient is q4 sodium checks. Sodium at 1999 was 126. At 0000 sodium was still 126. RN notified Dr. Walker about the patients sodium level. RN asked if she would want the fluid to be restarted since they are being held to prevent rapid correction of the sodium level. Dr. Walker told RN to continue and hold the fluids.
[2024-09-30] MEDS: oxyCODONE/APAP 5/325 TABLET 1 TAB PO (03:47)
[2024-09-30 05:32] LABS: Basophils # (Auto) 0.1 Thou/mm3 (0.0-0.2); Basophils % (Auto) 1 % (0-2.5); Eosinophils # (Auto) 0.1 Thou/mm3 (0.0-0.5); Eosinophils % (Auto) 1 % (0-10); Hematocrit 38.7 % (41.0-53.0); Hemoglobin 13.8 g/dL (13.5-16.0); Immature Granulocytes % (Auto) 1 % (0-0); Lymphocytes # (Auto) 0.5 Thou/mm3 (1.0-4.8); Lymphocytes % (Auto) 6 % (10-50); Mean Corpuscular HGB Conc 35.7 g/dl (31.0-37.0); Mean Corpuscular Hemoglobin 32.8 pg (25.0-35.0); Mean Corpuscular Volume 92 fL (80-100); Monocytes # (Auto) 1.2 Thou/mm3 (0.0-0.8); Monocytes % (Auto) 14 % (0-12); Neutrophils # (Auto) 6.7 Thou/mm3 (1.8-7.7); Neutrophils % (Auto) 77 % (37-80); Nucleated Red Blood Cell % 0 /100 WBC (0); Platelet Count 231 Thou/mm3 (140-440); RDW Standard Deviation 41.7 fL (35.1-43.9); Red Blood Count 4.21 Miln/mm3 (4.50-5.90); White Blood Count 8.6 Thou/mm3 (3.8-10.6)
[2024-09-30] MEDS: SUCRALFATE 1 GM TABLET PO (05:33)
[2024-09-30] MEDS: HEPARIN SOD INJ 5000 UNIT/ML VIAL SC (05:33)
[2024-09-30 06:24] LABS: Alanine Aminotransferase 12 U/L (10-49); Albumin, Serum 4.1 gm/dL (3.4-4.8); Albumin/Globulin Ratio 1.5 (1.2-2.2); Alkaline Phosphatase 83 U/L (46-116); Anion Gap 6 (7-16); Aspartate Amino Transferase 13 U/L (0-34); BUN/Creatinine Ratio 14 Ratio (12-20); Bilirubin,Total 0.8 mg/dL (0.3-1.2); Blood Urea Nitrogen 11 mg/dL (9-23); Calcium 9.4 mg/dL (8.3-10.6); Calcium (Corrected) 9.4 mg/dL (8.5-10.1); Carbon Dioxide 22.7 mMol/L (20.0-31.0); Chloride 96 mMol/L (98-107); Creatinine (Component) 0.8 mg/dL (0.6-1.3); Estimated Creatinine Clearance 88.9 mL/min (>60); Globulin 2.7 gm/dL (2.3-3.5); Glucose 149 mg/dL (74-106); Magnesium 1.6 mg/dL (1.6-2.6); Osmolality,Calculated 253 (275-295); Phosphorous 3.3 mg/dL (2.4-5.1); Potassium 4.2 mMol/L (3.4-5.1); Sodium 125 mMol/L (136-145); Total Protein 6.8 gm/dL (5.7-8.2); eGFR > 60 See Note
[2024-09-30] MEDS: SODIUM CHLORIDE 1 GM TABLET PO (09:04)
[2024-09-30] MEDS: ASPIRIN EC 81 MG TABEC PO (09:04)
[2024-09-30] MEDS: TAMSULOSIN HCL 0.4 MG CAPSULE PO (09:04)
[2024-09-30] MEDS: PANTOPRAZOLE 20 MG TABLET PO (09:04)
[2024-09-30] MEDS: LOSARTAN POTASSIUM 25 MG TABLET 100 MG PO (09:05)
[2024-09-30] MEDS: INSULIN LISPRO (AdmeLOG) 1 UNIT/0.01 ML UNIT SC (09:05)
--- NOTE | 2024-09-30 10:34 | PD.RESPRO ---
Documentation for date of: 09/30/24 Exam Vital Signs Temp Pulse Resp BP Pulse Ox O2 Del Method 98.6 F 88 16 131/81 H 95 Room Air 09/30/24 07:36 09/30/24 09:05 09/30/24 07:36 09/30/24 09:05 09/30/24 07:36 09/30/24 07:36 Objective Labs 09/30/24 04:48 09/30/24 04:48 Labs: Laboratory Results - last 24 hr 09/29/24 09/29/24 09/29/24 13:38 16:56 21:09 WBC RBC Hgb Hct MCV MCH MCHC RDW Std Deviation Plt Count Neut % (Auto) Lymph % (Auto) Harper % (Auto) Eos % (Auto) Baso % (Auto) Neut # (Auto) Lymph # (Auto) Harper # (Auto) Eos # (Auto) Baso # (Auto) Immature Gran # (Auto) Absolute Nucleated RBC Immature Gran % Nucleated RBC % Sodium 126 L 125 L 126 L Potassium Chloride Carbon Dioxide Anion Gap BUN Creatinine Estim Creat Clear Calc eGFR BUN/Creatinine Ratio Glucose Calculated Osmolality Calcium Corrected Calcium Phosphorus Magnesium Total Bilirubin AST ALT Alkaline Phosphatase Total Protein Albumin Globulin Albumin/Globulin Ratio 09/30/24 09/30/24 01:19 04:48 WBC 8.6 RBC 4.21 L Hgb 13.8 Hct 38.7 L MCV 92 MCH 32.8 MCHC 35.7 RDW Std Deviation 41.7 Plt Count 231 Neut % (Auto) 77 Lymph % (Auto) 6 L Harper % (Auto) 14 H Eos % (Auto) 1 Baso % (Auto) 1 Neut # (Auto) 6.7 Lymph # (Auto) 0.5 L Harper # (Auto) 1.2 H Eos # (Auto) 0.1 Baso # (Auto) 0.1 Immature Gran # (Auto) 0.10 H Absolute Nucleated RBC 0.00 Immature Gran % 1 H Nucleated RBC % 0 Sodium 126 L 125 L Potassium 4.2 Chloride 96 L Carbon Dioxide 22.7 Anion Gap 6 L BUN 11 Creatinine 0.8 Estim Creat Clear Calc 88.9 eGFR > 60 BUN/Creatinine Ratio 14 Glucose 149 H Calculated Osmolality 253 L Calcium 9.4 Corrected Calcium 9.4 Phosphorus 3.3 Magnesium 1.6 Total Bilirubin 0.8 AST 13 ALT 12 Alkaline Phosphatase 83 Total Protein 6.8 Albumin 4.1 Globulin 2.7 Albumin/Globulin Ratio 1.5 Quality Measures Quality Measures none Assessment & Plan Assessment Current Active Medications: Generic Name Dose Route Start Last Admin Trade Name Freq PRN Reason Stop Dose Admin Acetaminophen 650 mg 09/28/24 15:35 Acetaminophen 325 Mg Tablet PO 10/28/24 15:34 Q6H PRN Fever >100.4 Acetaminophen 650 mg 09/28/24 15:35 09/29/24 14:13 Acetaminophen 325 Mg Tablet PO 10/28/24 15:34 650 mg Q6H PRN Administration PAIN SCALE 1-3 (mild Aspirin 81 mg 09/28/24 16:00 09/30/24 09:04 Aspirin Ec 81 Mg Tabec PO 10/28/24 15:59 81 mg QDAY LORA Administration Atorvastatin Calcium 40 mg 09/28/24 21:00 09/29/24 20:19 Atorvastatin Calcium 20 Mg Tablet PO 10/28/24 20:59 40 mg HS LORA Administration Clopidogrel Bisulfate 75 mg 09/28/24 21:00 09/29/24 20:19 Clopidogrel Bisulfate 75 Mg Tablet PO 10/28/24 20:59 75 mg HS LORA Administration Dextrose 25 ml 09/28/24 15:47 Dextrose 50%-Water Inj 50 Ml Syringe IV 10/28/24 15:46 Q15MIN PRN BG 50-70 responsive npo pt Dextrose 50 ml 09/28/24 15:47 Dextrose 50%-Water Inj 50 Ml Syringe IV 10/28/24 15:46 Q15MIN PRN BG <50 OR BG <70 & pt unresponsive Glucagon 1 mg 09/28/24 15:47 Glucagon Inj 1 Mg Vial IM Q15MIN PRN BG <70, and no IV access Heparin Sodium (Porcine) 5,000 unit 09/28/24 22:00 09/30/24 05:33 Heparin Sod Inj 5000 Unit/Ml Vial SC 10/12/24 21:59 5,000 unit Q8HR LORA Administration Dextrose 1,000 mls @ 100 mls/hr 09/29/24 06:58 D5w IV .Q10H LORA Insulin Human Lispro 0 unit 09/28/24 17:00 09/30/24 09:05 Insulin Lispro (Admelog) 1 Unit/0.01 Ml Unit SC 10/28/24 16:59 2 unit ACHS LORA Administration Protocol Losartan Potassium 100 mg 09/29/24 09:00 09/30/24 09:05 Losartan Potassium 25 Mg Tablet PO 10/29/24 08:59 100 mg QDAY LORA Administration Ondansetron HCl 4 mg 09/28/24 15:35 Ondansetron Inj 2 Mg/Ml Inj 2 Ml IV 10/28/24 15:34 Q6H PRN NAUSEA OR VOMITING Protocol Oxycodone/Acetaminophen 1 tab 09/28/24 15:35 09/30/24 03:47 Oxycodone/Apap 5/325 Tablet PO 10/03/24 15:34 1 tab Q6H PRN Administration PAIN SCALE 4-6 (Moderate Pantoprazole Sodium 20 mg 09/28/24 16:00 09/30/24 09:04 Pantoprazole 20 Mg Tablet PO 10/28/24 15:59 20 mg QDAY LORA Administration Polyethylene Glycol 17 gm 10/01/24 09:00 Polyethylene Glycol 17 Gm Packet PO 10/31/24 08:59 QDAY LORA Sennosides 1 tab 09/30/24 10:22 Senna/Docusate Sod 1 Tab Tablet PO 10/30/24 10:21 QDAY PRN CONSTIPATION Protocol Sodium Chloride 1 gm 09/30/24 09:00 09/30/24 09:04 Sodium Chloride 1 Gm Tablet PO 10/30/24 08:59 1 gm BID LORA Administration Sucralfate 1 gm 09/29/24 06:00 09/30/24 05:33 Sucralfate 1 Gm Tablet PO 10/29/24 05:59 1 gm ACBR LORA Administration Tamsulosin HCl 0.4 mg 09/29/24 09:00 09/30/24 09:04 Tamsulosin Hcl 0.4 Mg Capsule PO 10/29/24 08:59 0.4 mg QDAY LORA Administration Plan In summary: 73 year-old male with PMHx of CAD, s/p CABG 2.5 years ago, HTN, HLD, diabetes, and arthritis admitted for asymptomatic severe hyponatremia. Patient started on fluids, sodium checks, with nephrology following. Now on salt tabs BID, will d/c once sodium 126 (currently 125), continue salt tabs daily for 4-5 days. Appreciate recommendations from cardiology and nephrology. 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 Started IV fluids at 75 cc/HR, pending baseline echocardiogram ? Sodium checks Q4H ? Sodium correction rate 6-8 mEq in 24 hours Mechanical fall Chest pain, likely MSK 2/ fall Admits to mechanical fall on Friday night after tripping over a misplaced object on the floor Fall may be the cause of hyponatremia (SIADH) rather than a result of hyponatremia Exam showed left forehead facial laceration, nontender, no active bleed, no skull deformities, otherwise no focal neurological deficits, cranial nerve exam grossly intact. Reproducible chest tenderness over the mid sternum, without deformities, CXR showed no fracture Subjective paresthesia of distal left extremity, normal physical exam ? Monitor for worsening symptoms, consider CT head ? B12 267, gave 1 shot B12 ? ANALGESICS ordered CAD, s/p CABG 2.5 years ago. Hypertensive urgency (resolved) Hx of HTN, HLD Grade I diastolic dysfunction, EF 50-55% Admission BP 209/114 without signs of EOD, improved with CLONIDINE, patient skipped home ANTIHYPERTENSIVE dose today. Denies cardiogenic chest pain, normal troponins, normal EKG Pending lipid panel, TSH Target LDL should be less than 55 Patient should be on high intensity statin, however currently on 40 mg ECHO done this visit showing Grade I diastolic dysfunction, EF 50-55% ? Resumed ASPIRIN 81 mg daily ? Resumed PLAVIX 75 mg HS ? Resumed LOSARTAN 100 mg daily ? Resumed ATORVASTATIN 40 mg HS ? Resume METOPROLOL 50 mg daily T2DM, well-controlled A1c 5.4 ? Follow-up A1c ? INSULIN sliding scale Arthritis ? TYLENOL as above Health maintenance Diet: Cardiac GI prophylaxis: PROTONIX DVT prophylaxis: HEPARIN subcu, SCDs Antibiotics: Not indicated CODE STATUS: DNR Disposition: Correcting hyponatremia, pending nephrology recommendations Patient case was discussed with attending, Dorian Arrington MD and senior residents Dr. Phillip and Dr. Cornelius. Almita Hoffman DO PGYI Mr Wall is a 73 year old with PMHx of CAD, s/p CABG 2.5 years ago, HTN, HLD, diabetes, and arthritis, who is admitted for severe hyponatremia Na 119. Recent history of GLMF, will supplement vitamins. Nephrology is consulted for hypotonic hyponatremia, severe. Patient was started on NS, Na improved 119 --> 125. Patient was started on D5W by Nephrology yesterday. 09/29: Na @ 125, will discontinue D5 for now. Patient started fluid restriction of 1500cc, hold off on NS until further Nephrology recommendations. Na 125 -> 126 -> 125, will continue q4HR sodium checks with goal correction of hyponatremia by 4-6 mmol in 24 hours. Urine Na low, likely etiology polydipsia vs. SIADH. Patient examined and case discussed with the team including attending physician. Note reviewed, I agree with the care plan as documented. - Donnie Cornelius MD, PGY 2
--- NOTE | 2024-09-30 11:15 | ESPR_ITS ---
Documentation for date of: 09/30/24 Subjective Subjective Interval history: Mr. Wall is a 39-year-old slovak-speaking patient with past medical history of diabetes, hypertension, hyperlipidemia, coronary artery disease status post CABG 2020 and BPH who presented to [facility] with a chief complaint of chest pain, patient reported that chest pain started earlier this morning, describes chest pain as dull ache 05/29, reported feeling of heaviness in the chest radiating to left arm. Patient denies any nausea,vomiting or diaphoresis associated with pain, he reported that he had similar complaint in 2020 when he was admitted for chest pain and was eventually found to have triple-vessel disease for which he was transferred to [facility]. Patient reports following up with Dr. Rai outpatient in the past, unable to follow-up with him due to insurance difficulties, [facility] Patient was seen at nephrology practice about a year ago for the concern of microalbuminuria. Patient otherwise has no current complaints, denies any shortness of breath. ED Course: ED Vitals: On presentation BP 209/114, P79, RR 18, temp 99.1, O2 sat 99 on room air ED Labs: ED labs significant for WBC 11.5, neutrophilia, sodium 119, chloride 86, glucose 120, osmolality 240, BNP 143, troponins negative, TSH 2.14. Repeat sodium 119 ED Imaging: EKG in ED shows no ST elevation, chest x-ray significant for no pneumonia/pulmonary edema ED Treatment:Patient was given clonidine 0.3 mg x 1, metoprolol tartrate 50 mg x 1, ibuprofen 400 mg, acetaminophen/codeine phosphate 2 tabs and was started on NS 125 cc/h Current medications patient currently on Janumet, metoprolol tartrate, losartan, Farxiga, Kerendia, atorvastatin, clopidogrel, aspirin, tamsulosin, omeprazole, sucralfate 09/28: Nephrology consulted for management of hypoosmolar hypochloremic hyponatremia. Patient denies any recent increase in water intake, denies any alcohol intake, denies any history of hyponatremia. He does complain of dizziness which started recently, does endorse history of multiple falls, most recent fall described as tripping over a toy box and hitting his head, bruise noted on forehead on the left side. Patient's also reports that patient has decreased p.o. intake and recently has lost weight. 09/29: Sodium overcorrected to 127 was started on D5W 75cc/h, repeat sodium 129, increased the rate of D5W to 100cc/h. Patient denies any neurological symptoms, denies any dizziness, has good PO intake. Urine electrolyes show sodium of 18.2, low urine sodium indicates high suspision of true hyponatremia due to poor PO intake. Requested nursing team to enforce strict I&O's. Otherwise patient has no current complaints, denies chest pain. Will continue to correct sodium with goal of 4-6mEq every 24 hours, will monitor closely with sodium checks every 4 hours. Recommend PT consult. 09/30: Patient seen on [facility], sodium 125 this morning, patient was given 1 salt tablet yesterday evening, patient has no current complaints, has good p.o. intake. Patient started on salt tablets twice daily once patient's sodium is more than 126, patient stable for discharge recommending discharge on salt tablets twice daily for 4 to 5 days and follow-up outpatient with renal panel. Patient's sodium corrected by 7 in 48 hours, patient denies any neurological symptoms. Patient medication reviewed at bedside, not on any diuretics or other agents which can cause hyponatremia. Exam Vital Signs Temp Pulse Resp BP Pulse Ox O2 Del Method 99.4 F 102 H 17 128/69 93 L Room Air 09/30/24 12:00 09/30/24 12:00 09/30/24 12:00 09/30/24 12:00 09/30/24 12:00 09/30/24 12:00 Narrative Exam Physical Exam General: Awake and in no acute distress. Conversational and non-toxic appearing. HEENT: Normocephalic, atraumatic, mucous membranes moist. Bruise noted on forehead, left side Heart: Regular rate and rhythm, no murmurs. Lungs: Clear to auscultation with no wheezing or crackles. Abdomen: Soft, obese, nondistended, nontender, positive bowel sounds. ?No guarding or rebound tenderness. Neurologic: Alert and oriented x3, no gross neurological deficit, and patient able to move all 4 extremities. Extremities: No edema. Bilateral venous stasis/dermatitis noted bilateral legs. Skin: No rash or ecchymoses. Objective Labs 09/30/24 04:48 09/30/24 12:09 Labs: Laboratory Results - last 24 hr 09/29/24 09/29/24 09/29/24 13:38 16:56 21:09 WBC RBC Hgb Hct MCV MCH MCHC RDW Std Deviation Plt Count Neut % (Auto) Lymph % (Auto) [place] % (Auto) Eos % (Auto) Baso % (Auto) Neut # (Auto) Lymph # (Auto) [place] # (Auto) Eos # (Auto) Baso # (Auto) Immature Gran # (Auto) Absolute Nucleated RBC Immature Gran % Nucleated RBC % Sodium 126 L 125 L 126 L Potassium Chloride Carbon Dioxide Anion Gap BUN Creatinine Estim Creat Clear Calc eGFR BUN/Creatinine Ratio Glucose Calculated Osmolality Calcium Corrected Calcium Phosphorus Magnesium Total Bilirubin AST ALT Alkaline Phosphatase Total Protein Albumin Globulin Albumin/Globulin Ratio 09/30/24 09/30/24 09/30/24 01:19 04:48 12:09 WBC 8.6 RBC 4.21 L Hgb 13.8 Hct 38.7 L MCV 92 MCH 32.8 MCHC 35.7 RDW Std Deviation 41.7 Plt Count 231 Neut % (Auto) 77 Lymph % (Auto) 6 L [place] % (Auto) 14 H Eos % (Auto) 1 Baso % (Auto) 1 Neut # (Auto) 6.7 Lymph # (Auto) 0.5 L [place] # (Auto) 1.2 H Eos # (Auto) 0.1 Baso # (Auto) 0.1 Immature Gran # (Auto) 0.10 H Absolute Nucleated RBC 0.00 Immature Gran % 1 H Nucleated RBC % 0 Sodium 126 L 125 L 127 L Potassium 4.2 Chloride 96 L Carbon Dioxide 22.7 Anion Gap 6 L BUN 11 Creatinine 0.8 Estim Creat Clear Calc 88.9 eGFR > 60 BUN/Creatinine Ratio 14 Glucose 149 H Calculated Osmolality 253 L Calcium 9.4 Corrected Calcium 9.4 Phosphorus 3.3 Magnesium 1.6 Total Bilirubin 0.8 AST 13 ALT 12 Alkaline Phosphatase 83 Total Protein 6.8 Albumin 4.1 Globulin 2.7 Albumin/Globulin Ratio 1.5 Quality Measures Quality Measures VTE prophylaxis Advance care planning discussed with:: patient Assessment & Plan Assessment Current Active Medications: Generic Name Dose Route Start Last Admin Trade Name Freq PRN Reason Stop Dose Admin Acetaminophen 650 mg 09/28/24 15:35 Acetaminophen 325 Mg Tablet PO 10/28/24 15:34 Q6H PRN Fever >100.4 Acetaminophen 650 mg 09/28/24 15:35 09/29/24 14:13 Acetaminophen 325 Mg Tablet PO 10/28/24 15:34 650 mg Q6H PRN Administration PAIN SCALE 1-3 (mild Aspirin 81 mg 09/28/24 16:00 09/30/24 09:04 Aspirin Ec 81 Mg Tabec PO 10/28/24 15:59 81 mg QDAY LORA Administration Atorvastatin Calcium 40 mg 09/28/24 21:00 09/29/24 20:19 Atorvastatin Calcium 20 Mg Tablet PO 10/28/24 20:59 40 mg HS LORA Administration Clopidogrel Bisulfate 75 mg 09/28/24 21:00 09/29/24 20:19 Clopidogrel Bisulfate 75 Mg Tablet PO 10/28/24 20:59 75 mg HS LORA Administration Dextrose 25 ml 09/28/24 15:47 Dextrose 50%-Water Inj 50 Ml Syringe IV 10/28/24 15:46 Q15MIN PRN BG 50-70 responsive npo pt Dextrose 50 ml 09/28/24 15:47 Dextrose 50%-Water Inj 50 Ml Syringe IV 10/28/24 15:46 Q15MIN PRN BG <50 OR BG <70 & pt unresponsive Glucagon 1 mg 09/28/24 15:47 Glucagon Inj 1 Mg Vial IM Q15MIN PRN BG <70, and no IV access Heparin Sodium (Porcine) 5,000 unit 09/28/24 22:00 09/30/24 05:33 Heparin Sod Inj 5000 Unit/Ml Vial SC 10/12/24 21:59 5,000 unit Q8HR LORA Administration Dextrose 1,000 mls @ 100 mls/hr 09/29/24 06:58 D5w IV .Q10H LORA Insulin Human Lispro 0 unit 09/28/24 17:00 09/30/24 09:05 Insulin Lispro (Admelog) 1 Unit/0.01 Ml Unit SC 10/28/24 16:59 2 unit ACHS LORA Administration Protocol Losartan Potassium 100 mg 09/29/24 09:00 09/30/24 09:05 Losartan Potassium 25 Mg Tablet PO 10/29/24 08:59 100 mg QDAY LORA Administration Ondansetron HCl 4 mg 09/28/24 15:35 Ondansetron Inj 2 Mg/Ml Inj 2 Ml IV 10/28/24 15:34 Q6H PRN NAUSEA OR VOMITING Protocol Oxycodone/Acetaminophen 1 tab 09/28/24 15:35 09/30/24 03:47 Oxycodone/Apap 5/325 Tablet PO 10/03/24 15:34 1 tab Q6H PRN Administration PAIN SCALE 4-6 (Moderate Pantoprazole Sodium 20 mg 09/28/24 16:00 09/30/24 09:04 Pantoprazole 20 Mg Tablet PO 10/28/24 15:59 20 mg QDAY LORA Administration Sodium Chloride 1 gm 09/30/24 09:00 09/30/24 09:04 Sodium Chloride 1 Gm Tablet PO 10/30/24 08:59 1 gm BID LORA Administration Sucralfate 1 gm 09/29/24 06:00 09/30/24 05:33 Sucralfate 1 Gm Tablet PO 10/29/24 05:59 1 gm ACBR LORA Administration Tamsulosin HCl 0.4 mg 09/29/24 09:00 09/30/24 09:04 Tamsulosin Hcl 0.4 Mg Capsule PO 10/29/24 08:59 0.4 mg QDAY LORA Administration Plan Summary: is a 39-year-old slovak-speaking patient with past medical history of diabetes, hypertension, hyperlipidemia, coronary artery disease status post CABG 2020 and BPH who presented to [facility] with a chief complaint of chest pain. Nephrology consulted for management of hypoosmolar hypochloremic hyponatremia. # Hypovolemic hypoosmolar hypochloremic hyponatremia, resolving -Denies any history of hyponatremia, not on any diuretics, unable to provide reliable detail of current p.o. medication, denies any neurological symptoms, no neurological deficits seen on exam - at bedside does report decreased p.o. intake, reports recent weight loss. Does endorse increased dizziness causing multiple falls recently. -Patient does not look fluid overloaded at bedside, does report decreased p.o. intake, considering hypovolemic hyponatremia due to decreased p.o. intake. -Patient's sodium 119 on presentation, repeat sodium 119. Patient was started on IV NS in ED 125 cc/h. -Urine electrolytes significant for urine creatinine 44, sodium 18.2, potassium 60, urine chloride 35.1, urine random urea nitrogen 313. -Overnight patient's sodium overcorrected to 127, was started on D5W 75 cc/h -Repeat sodium on D5W 75 cc/h was 129, increased rate of D5W to 100 cc/h -Patient was given salt tablet yesterday evening, has good p.o. intake Plan: -Continue salt tablets twice daily -Continue sodium checks every 4 hours. -Discharge patient when sodium more than 126 on salt tablets twice daily follow- up outpatient in 1 week -Patient responded well to IV NS, suspected etiology true hypovolemic hyponatremia due to decreased p.o. intake -Avoid nephrotoxic medication -Renally dose medication # Cardiac chest pain, resolved # Coronary artery disease status post CABG 2020 Patient did present with chest pain, reported dull ache radiating to left arm, troponin negative in ED, EKG negative for any ST elevation Denies any chest pain currently Management per primary team # Diabetes mellitus # Hypertension # Hyperlipidemia # BPH Management as per primary team Case discussed with Attending physician Dr. Rosales. Paula Ugarte PGY1 Attending Provider Attestation/Addendum Patient seen and examined with resident physician Dr. Ugarte. Note reviewed, agree with findings and recommendations.
[2024-09-30 12:49] LABS: Sodium 127 mMol/L (136-145)
--- NOTE | 2024-09-30 13:23 | ESDS_ITS ---
Planned Discharge Date 09/30/24 DS: Providers Provider Date of admission: 09/28/24 15:30 Primary care physician: Physician No Primary/Family Admitting Provider: Dorian Arrington MD Attending Provider on Admission: Dorian Arrington MD Consults: 09/28/24 16:08 Consult to Nephrology Stat Comment: Hyponatremia, NA 119, asymptomatic Consulting Provider: Yuliana Rosales 09/29/24 14:07 Referral Physical Therapy Routine Comment: Physician Instructions: Attending Provider on DC: Almita Hoffman MD Discharging Provider: Almita Hoffman MD DS: Diagnosis Problem List Completed Was Problem List Reviewed/Reconciled?: Yes Hospital Course Hospital Course Hospital course: This is a pleasant 73 year-old male with PMHx of CAD, s/p CABG 2.5 years ago, HTN, HLD, diabetes, and arthritis admitted for ground-level fall and asymptomatic severe hyponatremia, sodium 119. Sodium corrected to 127 at the time of discharge with nephrology team following. Patient stable to discharge h ome, denies any complaints. He will continue with sodium tablet for 4 to 5 days and follow-up with nephrology and PCP after discharge as instructed below. PATIENT INSTRUCTIONS: Follow-up with PCP within 1 week of discharge. If you do not have a PCP, please follow up at the [facility] ([phone]). Please discuss diabetes control. Follow-up with nephrology, Dr. Rosales within 1-2 weeks of discharge, please have chemistry panel lab completed in 1 week, before seeing nephrology. Return to Emergency Room if symptoms persist, worsen, or new symptoms develop. Recommended low-carb diet. Continue taking medications as prescribed below: ? Salt tablets 1 table every 12 hours for 5 days ? ASPIRIN 81 mg daily ? ATORVASTATIN 40 mg daily at night ? PLAVIX 75 mg daily at night ? LOSARTAN 100 mg daily ? PROTONIX 20 mg daily ? TAMSULOSIN 0.4 mg daily ADMISSION DIAGNOSES: # Severe hypoosmotic hyponatremia, asymptomatic # Mechanical fall # Chest pain, likely MSK 2/2 fall # Subjective paresthesia of distal left extremity, normal physical exam # CAD, s/p CABG 2.5 years ago. # Hypertensive urgency # Hx of HTN, HLD # Grade I diastolic dysfunction, EF 50-55% # ECHO done this visit showing Grade I diastolic dysfunction, EF 50-55% # T2DM, well-controlled # Arthritis Patient case was discussed with attending, Dorian Arrington MD and senior residents Dr. Phillip and Dr. Cornelius. Almita Hoffman DO PGYI Time Spent with Patient Time attestation: Total time spent providing and/or coordinating discharge services: Greater than 35 minutes. Exam Vital Signs Temp Pulse Resp BP Pulse Ox O2 Del Method 99.4 F 102 H 17 128/69 93 L Room Air 09/30/24 12:00 09/30/24 12:09/30/24 12:09/30/24 12:09/30/24 12:09/30/24 12:00 Narrative Exam GENERAL: Normal appearing adult male, NAD HEENT: NCAT.?PEMA. Oral mucosa is moist. Patent Nares NECK: Supple, nontender, no thyromegaly, no meningismus, no JVD, no step offs CHEST: Symmetrical, atraumatic, and with equal expansion, Nontender on palpation no deformity and no crepitus. CARDIOVASCULAR: Regular rate, regular rhythm, no m/g/r LUNGS: Coarse breath sound bilaterally, audible wheezing without stethoscope, no rales. Symmetrical chest rise. No intercostal subcostal retraction. ABDOMEN: Soft, flat, nontender. No guarding/rebound tenderness/masses. +BS EXTREMITIES: Nontender.? No edema/cyanosis.?Moves all 4 extremities well, with full ROM and good CSM. SKIN: Warm and dry, no jaundice/rashes. 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 MSK: No lumbar or midline, no CVA, no paraspinal muscle spasm or tenderness. NEURO: YOU x4, CN II-XII grossly intact.?No focal neurologic deficits. PSYCHIATRIC: Normal mood and affect, cooperative, no SI or HI or hallucinations. Discharge Plan Plan Patient Disposition: HOME (Self Care) Patient condition on transfer: Stable Prescriptions/Referrals Prescriptions/Med Rec: New sodium chloride 1,000 mg Tablet,Soluble 1,000 mg PO BID 5 Days Qty: 10 0RF Continued ibuprofen 800 mg tablet 800 mg PO TID PRN (Reason: pain) Qty: 30 0RF amlodipine 10 mg Tablet 10 mg PO QDAY losartan 100 mg Tablet 100 mg PO QDAY carvedilol 25 mg Tablet 25 mg PO BID acetaminophen 650 mg Tablet Extended Release 650 mg PO Q8H sildenafil [Viagra] 50 mg Tablet 50 mg PO QDAY metoprolol tartrate 25 mg tablet 25 mg PO DION Rx Instructions: Take 1 tablet every morning atorvastatin 40 mg tablet 40 mg PO 1XD clopidogrel 75 mg tablet 75 mg PO QPM tamsulosin 0.4 mg capsule 0.4 mg PO QPM dapagliflozin propanediol [Farxiga] 5 mg tablet 5 mg PO QAM omeprazole 40 mg capsule,delayed release(DR/EC) 40 mg PO QAM Kerendia 20 mg Tablet 20 mg PO QAM aspirin 81 mg Capsule 81 mg PO QDAY Held glipizide 5 mg Tablet 5 mg PO QDAY Hold Instructions: Resume on 10/14/24. Hold until after you see your PCP, as your A1c is 5.4% Janumet 50-1,000 mg Tablet 1 tab PO BIDWM Hold Instructions: Resume on 10/14/24. Hold until after you visit your PCP, as your a1c is 5.4% Discontinued pravastatin 20 mg Tablet 20 mg PO PRN dapagliflozin propanediol [Farxiga] 5 mg tablet Referrals: No Primary/Family,Physician [Primary Care Provider] - Yuliana Rosales MD [Physician] - Outpatient Orders (i.e. Home Health, Labs, Imaging): Basic Metabolic Panel (Routine) Timeframe: 1 Week Facility: [facility] - Location: Laboratory Ordered By: Juliana Phillip Patient/Caregiver Discharge Instructions Discharge Activity: activity as tolerated Other Discharge Activity Instructions:: Follow-up with PCP within 1 week of discharge. If you do not have a PCP, please follow up at the [facility] ([phone]). Please discuss diabetes control. Follow-up with nephrology, Dr. Rosales within 1-2 weeks of discharge, please have chemistry panel lab completed in 1 week, before seeing nephrology. Return to Emergency Room if symptoms persist, worsen, or new symptoms develop. Recommended low-carb diet. Continue taking medications as prescribed below: ? Salt tablets 1 table every 12 hours for 5 days ? ASPIRIN 81 mg daily ? ATORVASTATIN 40 mg daily at night ? PLAVIX 75 mg daily at night ? LOSARTAN 100 mg daily ? PROTONIX 20 mg daily ? TAMSULOSIN 0.4 mg daily Education Materials: Healthy Meals for Diabetes, Hyponatremia Dc, Diabetes Carbs Fats Protein Print Language: Sami Stand Alone Forms: [employer] Info., Patient Portal Info Letter Discharge Order Discharge Orders: Discharge (Routine); Ordered 09/30/24 Ordered By: Almita Hoffman Quality Discharge Quality Measures VTE prophylaxis Attestestation Attestation I reviewed labs, imaging, EKG, home medications and prior available records. Face to face evaluation was performed by me. I have personally examined the patient and discussed assessment and plan with the IM team. I reviewed the resident note and agree with the plan with exceptions as below. 73-year-old male with history of CAD status post CABG who presented with a chief complaint of chest pain in the setting of ground-level fall. He was found to have severe hyponatremia. Ground-level fall: Likely in setting of generalized weakness which could be from hyponatremia. Management as below. Management of pain as needed. Ordered PT evaluation. He participated well. Hyponatremia: Improved. Etiology is unclear but could be contributed to decreased oral intake. Medications reviewed. Patient appears to be dehydrated. Started the patient on normal saline. Consulted nephrology. Started salt tablets. Continue salt tablets upon discharge. Follow-up with nephrology in 1 week. Repeat BMP in 1 week. Chest pain at rest: Appears to be musculoskeletal in the setting of ground-level fall. Troponin is negative. Management as above. Generalized weakness: Likely in the setting of dehydration versus hyponatremia. Management as above. CAD status post CABG: Resumed home aspirin, Plavix and atorvastatin. Ordered echocardiogram that showed no pertinent abnormalities. Time spent is 40 minutes. More than 50% of the time was spent on patient education and coordination of care.
--- NOTE | 2024-10-01 10:11 | PC.CM ---
HH packet initiated and sent to facilities via [employer] fax. Awaiting responses.
== END 2024-09-30 15:18 | disposition home or self-care (01) | DRG 641 ==
LOC: SERX 14:53 → SERHOLD 16:17 → S3NX 19:57
PROVIDERS: Student in an Organized Health Care Education/Training Program; Admitting Provider Student in an Organized Health Care Education/Training Program; Emergency Provider Emergency Medicine; Visit Provider Student in an Organized Health Care Education/Training Program
DX: E87.1 Hypo-osmolality and hyponatremia (principal); E78.5 Hyperlipidemia, unspecified; Z95.1 Presence of aortocoronary bypass graft; I25.10 Atherosclerotic heart disease of native coronary artery without angina pectoris; W01.0XXA Fall on same level from slipping, tripping and stumbling without subsequent striking against object, initial encounter; M19.90 Unspecified osteoarthritis, unspecified site; R07.89 Other chest pain; S01.81XA Laceration without foreign body of other part of head, initial encounter; I16.0 Hypertensive urgency; I10 Essential (primary) hypertension; Z66 Do not resuscitate; Z91.81 History of falling; R29.6 Repeated falls; N40.0 Benign prostatic hyperplasia without lower urinary tract symptoms
CPT/HCPCS: 36415; 71045; 80053; 80061; 81001; 82436; 82570; 82607; 83036; 83735; 83880; 84100; 84133; 84295; 84300; 84443; 84484; 84540; 85025; 93005; 93225; 93306; 96360; 96361; 97162; 99285; J1643; J1815; J3420; J7030; J7070; A9270; J1644

== ENCOUNTER → 2024-10-22 | Outpatient (CLI) | payer MEDICARE, SELFPAY ==
--- NOTE | 2024-10-22 10:00 | XR_ITS ---
Examination: LANDON, hepatobiliary radioisotope scan Gallbladder ejection fraction study. Date and time of exam: October 22, 2024 0947 hours INDICATIONS: Right upper abdominal pain beginning 2 years ago Technique: 6 mCi of 99M Hepatolite administered. Serial imaging then obtained from immediate through 60 minutes. 1.6 mcg selective catheter Kinevac administered for gallbladder ejection fraction study. Findings: Radioisotope activity within the liver is reasonably homogenous. Gallbladder, common bile duct small bowel activity noted Impression: Gallbladder activity Normal gallbladder ejection fraction 79%, normal greater than 35%
== END | disposition home or self-care (01) ==
PROVIDERS: PCP Obstetrics & Gynecology; Referring Provider Internal Medicine Gastroenterology; Visit Provider Internal Medicine Gastroenterology
DX: R10.11 Right upper quadrant pain (principal); R10.13 Epigastric pain; K87 Disorders of gallbladder, biliary tract and pancreas in diseases classified elsewhere
CPT/HCPCS: 78226; A9537; J2805

== ENCOUNTER 2025-01-07 11:42 | Emergency (ER) | payer MEDICARE, SELFPAY ==
[2025-01-07 12:11] VITALS: BP 144/73; PULSE 97; RESP 18; TEMP 37; O2SAT 96; BMI 27.6
[2025-01-07] MEDS: OXYMETAZOLINE NAS SPRY 0.05% 15 ML BTL NASAL (12:35)
--- NOTE | 2025-01-07 13:24 | PD.EDEPIST ---
ED Epistaxis RME/HPI General Chief complaint: Epistaxis/Nasal Foreign Body Stated complaint: NOSE BLEED SINCE 0600 Time Seen by Provider: 01/07/25 12:15 Source: patient and family Arrival date/time: 01/07/25 11:42 This is a 74-year-old male presents to the emergency department with complaints of a nosebleed of right nostril. Patient reports it began approximately 6 in the morning however has stopped. He was prompted to the ED by his because he is on blood thinners. He does report having an incident similar in the past. Denies any other bleeding or complaint. No bleeding at the time of examination. Mode of arrival: ambulatory Limitations: no limitations Related Data Home Medications ?Medication ?Instructions ?Recorded ?Confirmed acetaminophen 650 mg 650 mg PO Q8H 05/27/21 05/27/21 tablet,extended release amlodipine 10 mg tablet 10 mg PO QDAY 05/27/21 05/29/21 carvedilol 25 mg tablet 25 mg PO BID 05/27/21 05/29/21 glipizide 5 mg tablet 5 mg PO QDAY 05/27/21 05/29/21 Held on 09/30/24. Instructions: Resume on 10/14/24. Hold until after you see your PCP, as your A1c is 5.4% losartan 100 mg tablet 100 mg PO QDAY 05/27/21 09/29/24 sitagliptin phosphate 50 1 tab PO BIDWM 05/27/21 05/29/21 mg-metformin 1,000 mg tablet (Janumet) Held on 09/30/24. Instructions: Resume on 10/14/24. Hold until after you visit your PCP, as your a1c is 5.4% sildenafil 50 mg tablet (Viagra) 50 mg PO QDAY 05/29/21 05/29/21 aspirin 81 mg capsule 81 mg PO QDAY 09/29/24 09/29/24 atorvastatin 40 mg tablet 40 mg PO 1XD 09/29/24 09/29/24 clopidogrel 75 mg tablet 75 mg PO QPM 09/29/24 09/29/24 dapagliflozin propanediol 5 mg 5 mg PO QAM 09/29/24 09/29/24 tablet (Farxiga) finerenone 20 mg tablet (Kerendia) 20 mg PO QAM 09/29/24 09/29/24 metoprolol tartrate 25 mg tablet 25 mg PO DION 09/29/24 09/29/24 omeprazole 40 mg capsule,delayed 40 mg PO QAM 09/29/24 09/29/24 release tamsulosin 0.4 mg capsule 0.4 mg PO QPM 09/29/24 09/29/24 Previous Rx's ?Medication ?Instructions ?Recorded ibuprofen 800 mg tablet 800 mg PO TID PRN pain #30 tabs 12/17/21 Allergies Allergy/AdvReac Type Severity Reaction Status Date / Time No Known Allergies Allergy Verified 01/07/25 11:44 Review of Systems Review of Systems Systems Reviewed: All systems reviewed, normal except as documented Narrative Review of Systems: Gen: No fever, no chills, no weight loss EYES: No discharge, no visual changes, no pain HEENT: No ear pain, no congestion, no sore throat PULM: No shortness of breath, no cough, no congestion CV: No chest pain, no dyspnea on exertion, no palpitations GI: No nausea, no vomiting, no diarrhea, no pain, no constipation : No frequency, no urgency,? no dysuria Musc/skel: No joint pain, no back pain Skin: No rash? Psyc: No hallucinations, no depression Heme/Lymph: No easy bleeding or bruising tendencies Neuro: No weakness, no headache ED Exam General Limitations: Present no limitations General appearance: Present alert and in no apparent distress Head Head exam: Present atraumatic Eye Eye exam: Present normal appearance, PERRL and EOMI ENT ENT exam: Present normal exam, normal oropharynx and mucous membranes moist Neck Neck exam: Present normal inspection, full ROM and trachea midline Chest Chest inspection: Present normal inspection and symmetric chest wall rise Respiratory Respiratory exam: Present normal lung sounds bilaterally Cardiovascular Cardiovascular exam: Present regular rate, normal rhythm and normal heart sounds Abdominal Exam Abdominal exam: Present soft and normal bowel sounds Extremities Exam Extremities exam: Present normal inspection and full ROM Back Exam Back exam: Present normal inspection and full ROM Neurological Exam Neurological exam: Present alert, oriented X3 and CN II-XII intact Psychiatric Psychiatric exam: Present normal affect and normal mood Skin Skin exam: Present warm, dry, intact and normal color Course Quality Measures none Orders Category Date Time Status Oxymetazoline Chidi [place] 0.05% [Afrin Nasal [place]] Med 01/07/25 12:20 Discontinued See Dose Instructions NASAL X1 ONE Vital Signs Vital signs: Vital Signs Temperature 98.6 F 01/07/25 12:11 Pulse Rate 97 01/07/25 12:11 Respiratory Rate 18 01/07/25 12:11 Blood Pressure 144/73 H 01/07/25 12:11 Pulse Oximetry (%) 96 01/07/25 12:11 Oxygen Delivery Method Room Air 01/07/25 12:11 Epistaxis MDM Narrative MDM Narrative:: This is a 70-year-old male evaluated in the ED for epistaxis at home since 6 AM. Upon my assessment patient's nosebleed had completely stopped. Once I assessed his nose there is no trickling or nosebleed to that right nostril. Did go ahead and did 1 spray of Oxymetazoline to his right nostril. Applied pressure for 2 hours. Patient reminded in 2 hours in the ER with no changes in condition or no bleeding. I will discharge patient home with a close follow-up with his PMD. I did instruct patient not to pick his nose, sneeze or blow his nose. Return to the emergency department if there is any worsening symptoms or bleeding is profusely and is unable to stop at home. Patient data External records reviewed:: [facility] previous records Clinical information provided by:: patient Social determinants that could affect healthcare access:: none Patient has the following chronic illnesses:: HTN, hyperlipedemia, CAD How is presenting disease/condition affected by chronic disease/condition?: uneffected by Evaluation data The following diagnostics were reviewed and interpreted by me:: other (specify) Lab and/or radiology exams considered but not ordered:: no Interpretation Summary: n/a Medications / Prescriptions Medications or Prescriptions considered but not ordered:: no Medication administrations:: Medication Administration History Discontinued Medications Oxymetazoline HCl (Oxymetazoline Chidi [place] 0.05% 15 Ml Btl) 0 spray NASAL X1 ONE Stop: 01/07/25 12:21 Last Admin: 01/07/25 12:35 Dose: 1 spray Documented By: MARTITA Comments: 1 SPRAY ADMINISTERED ON R NARE. All medications administered and effective Consultations Consultation(s) initiated? (list below): No Diagnosis Epistaxis Differential Diagnosis: nasal bone fracture, anterior epistaxis and posterior epistaxis Most likely diagnosis given after review of the tests above:: Nosebleed Admission Indicated Admission indicated?: not indicated Admission Request Was there a request for admission?: No Disposition Plan Disposition Plan: Discharge Discharge Attestation Discharge Attestation: The patient and all family members were given an opportunity to ask questions and understood the discharge instructions. Discharge instructions specifically effects, indications for sooner follow up or return to the emergency department, and the expected course of current diagnosis. Patient condition: Stable Discharge Plan Plan Patient Disposition: HOME (Self Care) Patient condition on transfer: Stable Prescriptions/Referrals Prescriptions/Med Rec: No Action ibuprofen 800 mg tablet 800 mg PO TID PRN (Reason: pain) Qty: 30 0RF amlodipine 10 mg Tablet 10 mg PO QDAY losartan 100 mg Tablet 100 mg PO QDAY glipizide 5 mg Tablet 5 mg PO QDAY Janumet 50-1,000 mg Tablet 1 tab PO BIDWM carvedilol 25 mg Tablet 25 mg PO BID acetaminophen 650 mg Tablet Extended Release 650 mg PO Q8H sildenafil [Viagra] 50 mg Tablet 50 mg PO QDAY metoprolol tartrate 25 mg tablet 25 mg PO DION Rx Instructions: Take 1 tablet every morning atorvastatin 40 mg tablet 40 mg PO 1XD clopidogrel 75 mg tablet 75 mg PO QPM tamsulosin 0.4 mg capsule 0.4 mg PO QPM dapagliflozin propanediol [Farxiga] 5 mg tablet 5 mg PO QAM omeprazole 40 mg capsule,delayed release(DR/EC) 40 mg PO QAM Kerendia 20 mg Tablet 20 mg PO QAM aspirin 81 mg Capsule 81 mg PO QDAY Problem List Clinical Impression: Epistaxis Patient/Caregiver Discharge Instructions Discharge Activity: activity as tolerated Education Materials: Nosebleed Additional Instructions: Elevate the head forward. Direct pressure, applied by gently squeezing the nostrils for 5 to 15 minutes, is usually sufficient to stop most nosebleeds. Aggressive moisturization including nasal saline spray, emollients such as Vaseline applied with a Q-tip, and humidified air are important for prevention. Follow-up with your primary doctor Return to the emergency department this any worsening symptoms any condition. Print Language: Persian Stand Alone Forms: Jaymie Award Info., Patient Portal Info Letter PA/DEJAN Supervising Physician PA/DEJAN Supervising Physician: Dr Patel
== END 2025-01-07 14:00 | disposition home or self-care (01) ==
LOC: SERX 14:21
PROVIDERS: Emergency Provider Emergency Medicine; PCP Nurse Practitioner Family
DX: R04.0 Epistaxis (principal)
CPT/HCPCS: 99281; A9270

== ENCOUNTER 2025-02-10 10:34 | Outpatient (RCR) | payer MEDICARE, SELFPAY ==
--- NOTE | 2025-02-10 11:16 | PTNOTE_ITS ---
PT OP Initial Eval Patient Information Outpatient Physical Therapy Treatment Date: 02/10/25 Visit Reasons: Pain in RT knee Medical Diagnosis: M53.1 M25.561 Start of Care: 02/10/25 Date of Onset: 4 months ago Smoking Status Smoking Status: Current every day smoker Cessation Counseling Provided: GLENIS was advised that quitting smoking is the single most important factor to protect the health of themselves and their family. Discussed the benefits of quitting smoking with patient. Encouraged patient to quit smoking and provided Cessation assistance materials and resources. Tobacco Use: Cigarette Years smoked: 45 Are you interested in quitting?: Yes Would you like additional Smoking Cessation Counseling?: No Initial Assessment Subjective: Pt is 74 yr old indonesian speaking male who reports R knee pain x 4 months. The pain limits walking distance and squatting tolerance and bending the knee. PLOF: pt was ambulating community distances PMH: HTN, DM, open heart, appendecitis Objective: R knee ArOM: Extension: -22 Flexion: 81 deg Gait: antalgic Strength: Quads: 3+/5 HS: 3+/5 Assessment: Pt presents with very limited ROM and strength of R knee and ambulates with antalgia. Pt not likely going to benefit from skilled therapy due to severity of pain and has poor rehab potential. Pt is likely going to have more pain with therapy interventions. Short Term and Shelter Goals Eval and D/C Treatment Plan Eval and D/C Certification Dates: 02/10/25 Procedure Charges OP PT Eval Mod Complex 30 minutes: Yes
== END 2025-02-16 23:59 | disposition home or self-care (01) ==
LOC: CPTX 10:34
PROVIDERS: PCP Nurse Practitioner Family; Referring Provider Nurse Practitioner Family; Visit Provider Nurse Practitioner Family
DX: M25.561 Pain in right knee (principal); R53.1 Weakness; R26.2 Difficulty in walking, not elsewhere classified; Z71.6 Tobacco abuse counseling; F17.210 Nicotine dependence, cigarettes, uncomplicated; I10 Essential (primary) hypertension; E11.9 Type 2 diabetes mellitus without complications
CPT/HCPCS: 97162

== ENCOUNTER → 2025-05-24 | Outpatient (CLI) | payer MEDICARE, SELFPAY ==
--- NOTE | 2025-05-24 11:30 | XR_ITS ---
Examination: Retroperitoneal ultrasound, complete Technique: Multiple high resolution grayscale images of the retroperitoneum obtained, including kidneys and bladder. Exam date and time:May 24, 2025 1108 hours INDICATIONS: Proteinuria on laboratory examinations 2 years FINDINGS: Right kidney 10.9 cm renal cortex 1.5 cm Left kidney 12.2 cm cortex 2.2 cm Upper pole 13 mm left renal cyst Moderate bilateral renal parenchymal scar formation No hydronephrosis No bladder mass or bladder calculi Bladder prevoid volume 147 cc Significant prostatomegaly, 4.9 x 4.6 x 5.4 cm volume 63 cc IMPRESSION: Right renal cortical thinning Moderate bilateral renal parenchymal scar formation Prostatomegaly, 63 cc volume no prostate nodules
== END | disposition home or self-care (01) ==
PROVIDERS: PCP Nurse Practitioner Family; Referring Provider Internal Medicine; Visit Provider Internal Medicine
DX: N28.89 Other specified disorders of kidney and ureter (principal); N40.0 Benign prostatic hyperplasia without lower urinary tract symptoms
CPT/HCPCS: 76770

== ENCOUNTER → 2025-08-12 | Outpatient (CLI) | payer MEDICARE, SELFPAY ==
--- NOTE | 2025-08-12 08:36 | XR_ITS ---
EXAMINATION: Right knee 2 views TECHNIQUE: AP lateral right knee 2 views Date and time: August 08 [id number], 0902 hours INDICATIONS: Right knee pain 40 years FINDINGS: Severe osteopenia Advanced right knee tricompartmental osteoarthritis Moderate knee effusion No fracture Soft tissue vascular calcification IMPRESSION: Advanced right knee tricompartment osteoarthritis
== END | disposition home or self-care (01) ==
PROVIDERS: PCP Nurse Practitioner Family; Referring Provider Orthopaedic Surgery; Visit Provider Orthopaedic Surgery
DX: M17.11 Unilateral primary osteoarthritis, right knee (principal)
CPT/HCPCS: 73560